=== PATIENT | female | born 1975 | race Caucasian/White ===

== ENCOUNTER 2021-01-19 08:00 | Outpatient (CLI) | payer BC ==
[2021-01-19 21:18] LABS: BACTERIAL VAGINOSIS DNA NEGATIVE (NEGATIVE); CANDIDA GLABRATA DNA NEGATIVE (NEGATIVE); CANDIDA GROUP DNA NEGATIVE (NEGATIVE); CANDIDA KRUSEI DNA NEGATIVE (NEGATIVE); TRICHOMONAS VAGINALIS DNA NEGATIVE (NEGATIVE)
[2021-01-19 22:22] LABS: CHLAMYDIA TRACHOMATIS DNA NEGATIVE (NEGATIVE); NEISSERIA GONORRHOEAE DNA NEGATIVE (NEGATIVE); TRICHOMONAS VAGINALIS DNA NEGATIVE (NEGATIVE)
== END 2021-01-19 23:59 | disposition home or self-care (01) ==
LOC: LAB.R 08:00
PROVIDERS: ATTEND Family Medicine
DX: N30.00 Acute cystitis without hematuria (principal)
CPT/HCPCS: 87491; 87591; 87661; 87801

== ENCOUNTER 2021-02-16 12:13 | Emergency (ER) | payer BC ==
--- NOTE | 2021-02-16 12:59 | XRAY Report ---
PROCEDURE: Chest 1 View X-Ray INDICATIONS: Chest pain TECHNIQUE: One view of the chest was acquired. COMPARISON: None FINDINGS: Surgical changes and devices: None. Lungs and pleura: No pleural effusions or pneumothorax. Lungs are clear. Mediastinum: Mediastinal contours appear normal. Heart size is normal. Bones and chest wall: No suspicious bony lesions. Overlying soft tissues appear unremarkable. IMPRESSION: No acute cardiopulmonary disease process. Reviewed by: Caprice Calixto MD, PhD on 02/16/2021 12:58 PM PDT Approved by: Caprice Calixto MD, PhD on 02/16/2021 12:58 PM PDT Station ID: [id number]
[2021-02-16 13:25] LABS: BASOPHILS % (AUTO) 0.6 %; EOSINOPHILS # (AUTO) 0.7 10^3/uL (0.0-0.7); EOSINOPHILS % (AUTO) 11.6 %; HCT - HEMATOCRIT 27.9 % (37.0-47.0); HGB - HEMOGLOBIN 8.2 g/dL (12.0-16.0); LYMPHOCYTES % (AUTO) 31.1 %; MEAN CORPUSCULAR HEMOGLOBIN 20.2 pg (27.0-31.0); MEAN CORPUSCULAR HGB CONC 29.4 g/dL (32.0-36.0); MEAN CORPUSCULAR VOLUME 68.7 fL (81.0-99.0); MEAN PLATELET VOLUME 9.9 fL (7.9-10.8); MONOCYTES # (AUTO) 0.3 10^3/uL (0.0-1.0); MONOCYTES % (AUTO) 5.3 %; NEUTROPHILS # (AUTO) 3.3 10^3/uL (1.5-6.6); NEUTROPHILS % (AUTO) 51.1 %; PLT - PLATELET COUNT 476 10^3/uL (130-450); RED BLOOD COUNT 4.06 10^6/uL (4.20-5.40); RED CELL DISTRIBUTION WIDTH 19.6 % (12.0-15.0); WHITE BLOOD COUNT 6.4 x10^3/uL (4.8-10.8)
[2021-02-16 13:26] LABS: RBC MORPHOLOGY (MULTIPLE) 2+ MICROCYTOSIS (NORMAL); SLIDE REVIEW? Indicated
[2021-02-16 13:28] LABS: ALBUMIN 4.5 g/dL (3.2-5.5); ALBUMIN/GLOBULIN RATIO 1.6 (1.0-2.2); BILIRUBIN,TOTAL 0.6 mg/dL (0.2-1.0); CALCIUM 9.5 mg/dL (8.5-10.3); CREATININE 0.8 mg/dL (0.4-1.0); TOTAL PROTEIN 7.3 g/dL (6.7-8.2)
--- NOTE | 2021-02-16 15:47 | ED Physician Documentation ---
History of Present Illness - Stated complaint Stated Complaint: TIGHT CHEST - Chief complaint Chief Complaint: Cardiac - History obtained from History obtained from: Patient - History of Present Illness Pain level max: 0 Pain level now: 0 - Additonal information Additional information: Patient is a 45-year-old female who presents to the emergency department stating that her chest feels tight like there is a pulled muscle across the front of it. Worse with movement and better with rest. No cough. Congestion. No cardiac history. She states that she has swelling in her bilateral feet when she comes home from work, this improves when she elevates her legs. Does have a history of a DVT in the left lower extremity after surgery in 2018. Review of Systems Constitutional: denies: Fever, Chills Throat: denies: Sore throat Respiratory: denies: Cough GI: denies: Nausea, Vomiting, Diarrhea Skin: denies: Rash Musculoskeletal: denies: Neck pain, Back pain Neurologic: denies: Headache PD PAST MEDICAL HISTORY - Past Medical History Past Medical History: Yes Other Past Medical History: anemia - Present Medications Home Medications: Ambulatory Orders Medication Instructions Recorded Confirmed Ferrous Gluconate 324 mg PO DAILY #30 tablet 02/16/21 - Allergies Allergies/Adverse Reactions: Allergies Allergy/AdvReac Type Severity Reaction Status Date / Time acetaminophen [From Percocet] Allergy Itching Verified 02/16/21 12:30 oxycodone [From Percocet] Allergy Itching Verified 02/16/21 12:30 - Living Situation Living Situation: reports: With family Living Arrangement: reports: At home - Social History Does the pt smoke?: No Does the pt have substance abuse?: No - Family History Family history: reports: Non contributory PD ED PE NORMAL - Vitals Vital signs reviewed: Yes - General General: Alert and oriented X 3, No acute distress - HEENT HEENT: Moist mucous membranes - Neck Neck: Supple, no meningeal sign - Respiratory Respiratory: No respiratory distress, Clear bilaterally - Abdomen Abdomen: Soft, Non tender, Non distended - Back Back: No spinal TTP - Derm Derm: Warm and dry - Extremities Extremities: No calf tenderness / cord, Other (mild peripheral edema, non- pitting.) - Neuro Neuro: Alert and oriented X 3 - Psych Psych: Normal mood, Normal affect Results - Vitals Vitals: Vital Signs - 24 hr 02/16/21 02/16/21 02/16/21 12:30 14:34 16:00 Temperature 36.5 C Heart Rate 70 65 60 Respiratory 16 18 19 Rate Blood Pressure 130/70 129/84 H 122/80 O2 Saturation 100 100 99 Oxygen O2 Source Room air - Labs Labs: Laboratory Tests 02/16/21 02/16/21 02/16/21 13:10 13:10 13:10 WBC 6.4 RBC 4.06 L Hgb 8.2 L Hct 27.9 L MCV 68.7 L MCH 20.2 L MCHC 29.4 L RDW 19.6 H Plt Count 476 H MPV 9.9 Neut # (Auto) 3.3 Lymph # (Auto) 2.0 [place] # (Auto) 0.3 Eos # (Auto) 0.7 Baso # (Auto) 0.0 Absolute Nucleated RBC 0.00 Nucleated RBC % 0.0 Manual Slide Review Indicated RBC Morph Micro Appear 2+ MICROCYTOSIS D-Dimer Sodium 138 Potassium 4.0 Chloride 105 Carbon Dioxide 25 Anion Gap 8.0 BUN 7 Creatinine 0.8 Estimated GFR (MDRD) 77 L Glucose 91 Calcium 9.5 Total Bilirubin 0.6 AST 32 ALT 23 Alkaline Phosphatase 52 Troponin I High Sens < 2.3 L B-Natriuretic Peptide Total Protein 7.3 Albumin 4.5 Globulin 2.8 Albumin/Globulin Ratio 1.6 Lipase 34 02/16/21 02/16/21 15:02 15:02 WBC RBC Hgb Hct MCV MCH MCHC RDW Plt Count MPV Neut # (Auto) Lymph # (Auto) [place] # (Auto) Eos # (Auto) Baso # (Auto) Absolute Nucleated RBC Nucleated RBC % Manual Slide Review RBC Morph Micro Appear D-Dimer < 200.0 L Sodium Potassium Chloride Carbon Dioxide Anion Gap BUN Creatinine Estimated GFR (MDRD) Glucose Calcium Total Bilirubin AST ALT Alkaline Phosphatase Troponin I High Sens B-Natriuretic Peptide 89 Total Protein Albumin Globulin Albumin/Globulin Ratio Lipase - Rads (name of study) cxr Radiology: Final report received, EMP read contemporaneously, See rad report (No acute cardiopulmonary disease process. ) PD MEDICAL DECISION MAKING - ED course Complexity details: reviewed results, re-evaluated patient, considered differential (No ST elevation NM, no aortic dissection, no PE, no tension pneumothorax, no aortic aneurysm), d/w patient ED course: Patient is a 45-year-old female who presents to the emergency department with chest pain. This is on the anterior chest wall. Reproducible with movement and palpation. She also has leg swelling. Appears to be dependent edema. Does not wear socks at work. Recommend compression socks. She states that she does have these at home. Possible costochondritis? We will have her continue supportive care and have her follow-up with her doctor. Patient counseled regarding signs and symptoms for which I believe and urgent re-evaluation would be necessary. Patient with good understanding of and agreement to plan and is comfortable going home at this time This document was made in part using voice recognition software. While efforts are made to proofread this document, sound alike and grammatical errors may occur. No evidence of DVT. Patient also appears to have iron deficiency anemia. We will place her back on iron. Departure - Departure Disposition: Home, Self Care Clinical Impression: Costochondritis Chest pain Qualifiers: Chest pain type: unspecified Qualified Code(s): R07.9 - Chest pain, unspecified Anemia Qualifiers: Anemia type: iron deficiency Iron deficiency anemia type: unspecified iron deficiency Qualified Code(s): D50.9 - Iron deficiency anemia, unspecified Condition: Good Instructions: ED Anemia Iron Deficiency, ED Chest Pain Costochondritis, ED Edema Legs Bilateral Follow-Up: your,doctor in 1 week [Other] Prescriptions: Ferrous Gluconate 324 mg PO DAILY #30 tablet Comments: Your testing does not show any acute abnormalities today. You do appear to have iron deficiency anemia. We will start you on iron supplementation. Your doctor can order iron infusions for you that may be easier for you to tolerate. Your chest pain appears consistent with costochondritis. You can use Motrin, Tylenol or Aleve for this pain. You should elevate your legs whenever possible, compression stockings will help to prevent the swelling in your feet as well. Follow-up with your doctor for further care. Return if you worsen Discharge Date/Time: 02/16/21 16:02
[2021-02-16 16:02] VITALS: BP 122/80
== END 2021-02-16 16:02 | disposition home or self-care (01) ==
LOC: ED 12:13
DX: M94.0 Chondrocostal junction syndrome [Tietze] (principal); R60.0 Localized edema; D50.9 Iron deficiency anemia, unspecified
CPT/HCPCS: 36415; 80053; 83690; 83880; 84484; 85025; 85379; 93005; 99284

== ENCOUNTER 2021-08-19 11:34 | Emergency (ER) | payer BC ==
[2021-08-19 12:15] LABS: BASOPHILS # (AUTO) 0.1 10^3/uL (0.0-0.1); BASOPHILS % (AUTO) 0.8 %; EOSINOPHILS # (AUTO) 0.1 10^3/uL (0.0-0.7); EOSINOPHILS % (AUTO) 1.5 %; HCT - HEMATOCRIT 39.3 % (37.0-47.0); HGB - HEMOGLOBIN 13.1 g/dL (12.0-16.0); LYMPHOCYTES # (AUTO) 1.9 10^3/uL (1.5-3.5); LYMPHOCYTES % (AUTO) 29.3 %; MEAN CORPUSCULAR HEMOGLOBIN 28.7 pg (27.0-31.0); MEAN CORPUSCULAR HGB CONC 33.3 g/dL (32.0-36.0); MEAN PLATELET VOLUME 9.8 fL (7.9-10.8); MONOCYTES # (AUTO) 0.3 10^3/uL (0.0-1.0); MONOCYTES % (AUTO) 5.1 %; NEUTROPHILS # (AUTO) 4.1 10^3/uL (1.5-6.6); NEUTROPHILS % (AUTO) 63.1 %; PLT - PLATELET COUNT 328 10^3/uL (130-450); RED BLOOD COUNT 4.57 10^6/uL (4.20-5.40); RED CELL DISTRIBUTION WIDTH 15.5 % (12.0-15.0); WHITE BLOOD COUNT 6.5 x10^3/uL (4.8-10.8)
--- NOTE | 2021-08-19 12:19 | ED Physician Documentation ---
History of Present Illness - Stated complaint Stated Complaint: FEMALE - Chief complaint Chief Complaint: Abd Pain - Additonal information Additional information: 46-year-old female presents to the emergency department for evaluation of me norrhagia. She reports that this episode of vaginal bleeding began mid July. She has been using 4-8 pads a day. Before this she had not had a cycle for 4 to 5 months and assumed she was entering menopause. She has no history of heavy or irregular cycles before this. She is on no oral hormonal contraceptives. Denies any chest pain or shortness of air. No syncopal episodes though she does endorse fatigue and weakness. She does state that at baseline she has a history of anemia and did receive an iron transfusion at the [facility] in May. Review of Systems Constitutional: reports: Fatigue Ears: reports: Reviewed and negative Throat: reports: Reviewed and negative Cardiac: reports: Reviewed and negative Respiratory: reports: Reviewed and negative GI: reports: Reviewed and negative : reports: Vaginal bleeding, Missed period Skin: denies: Rash, Lesions Musculoskeletal: reports: Reviewed and negative Neurologic: reports: Generalized weakness Psychiatric: reports: Reviewed and negative Endocrine: reports: Reviewed and negative PD PAST MEDICAL HISTORY - Present Medications Home Medications: Ambulatory Orders Medication Instructions Recorded Confirmed Ferrous Gluconate 324 mg PO DAILY #30 tablet 02/16/21 - Allergies Allergies/Adverse Reactions: Allergies Allergy/AdvReac Type Severity Reaction Status Date / Time acetaminophen [From Percocet] Allergy Itching Verified 08/19/21 11:57 oxycodone [From Percocet] Allergy Itching Verified 08/19/21 11:57 - Social History Does the pt smoke?: No Smoking Status: Never smoker Does the pt have substance abuse?: No PD ED PE NORMAL - General General: Alert and oriented X 3, No acute distress - HEENT HEENT: PERRL - Neck Neck: Supple, no meningeal sign, No adenopathy - Cardiac Cardiac: RRR, No murmur, No gallop - Respiratory Respiratory: No respiratory distress, Clear bilaterally - Abdomen Abdomen: Normal bowel sounds, Soft, Non tender - Back Back: No CVA TTP, No spinal TTP - Derm Derm: Normal color, Warm and dry - Extremities Extremities: No deformity, No tenderness to palpate, Normal ROM s pain - Neuro Neuro: Alert and oriented X 3, risk assessor 2-12 intact Eye Opening: Spontaneous Motor: Obeys Commands Verbal: Oriented GCS Score: 15 - Psych Psych: Normal mood Results - Vitals Vitals: Vital Signs - 24 hr 08/19/21 11:51 Temperature 36.6 C Heart Rate 85 Respiratory 16 Rate Blood Pressure 136/87 H O2 Saturation 98 Oxygen O2 Source Room air - Labs Labs: Laboratory Tests 08/19/21 08/19/21 08/19/21 12:07 12:07 12:07 WBC 6.5 RBC 4.57 Hgb 13.1 Hct 39.3 MCV 86.0 MCH 28.7 MCHC 33.3 RDW 15.5 H Plt Count 328 MPV 9.8 Neut # (Auto) 4.1 Lymph # (Auto) 1.9 [place] # (Auto) 0.3 Eos # (Auto) 0.1 Baso # (Auto) 0.1 Absolute Nucleated RBC 0.00 Nucleated RBC % 0.0 PT INR Sodium 135 Potassium 3.9 Chloride 99 L Carbon Dioxide 26 Anion Gap 10.0 BUN 13 Creatinine 0.7 Estimated GFR (MDRD) 89 Glucose 93 Calcium 9.6 Total Bilirubin 0.7 AST 23 ALT 21 Alkaline Phosphatase 51 Total Protein 7.5 Albumin 4.3 Globulin 3.2 Albumin/Globulin Ratio 1.3 Lipase 37 TSH Serum HCG, Qual NEGATIVE 08/19/21 08/19/21 12:07 12:16 WBC RBC Hgb Hct MCV MCH MCHC RDW Plt Count MPV Neut # (Auto) Lymph # (Auto) [place] # (Auto) Eos # (Auto) Baso # (Auto) Absolute Nucleated RBC Nucleated RBC % PT 12.5 INR 1.1 Sodium Potassium Chloride Carbon Dioxide Anion Gap BUN Creatinine Estimated GFR (MDRD) Glucose Calcium Total Bilirubin AST ALT Alkaline Phosphatase Total Protein Albumin Globulin Albumin/Globulin Ratio Lipase TSH 2.84 Serum HCG, Qual - Rads (name of study) pelvic US Radiology: Other (per US tech: bicornate uterus; thickened endometrium, right ovarian cyst. + fibroids) PD MEDICAL DECISION MAKING - ED course Complexity details: reviewed results, re-evaluated patient, considered differential, d/w patient ED course: 46-year-old female presents emergency department for evaluation of vaginal bleeding that began about 1 month ago. She had not had a menstrual cycle for approximately 4 months and thought that she was likely entering menopause. She states that over the last week the bleeding has gotten heavier and she is used 8 tampons over the last 24 hours. No syncope or tachycardia. Screening labs reveal a normal and healthy hemoglobin at 13. Electrolytes without worrisome findings. Thyroid is normal. Screening pelvic ultrasound revealed a bicornate uterus with a thickened endometrium and some small fibroids. Given that she is not anemic and has no vital sign abnormality will defer further treatment at this time. Advise close follow-up with her motion picture printer for further recommendations. Emergent worrisome return precautions were discussed for worsening symptoms. Departure - Departure Disposition: 01 Home, Self Care Clinical Impression: Vaginal bleeding, Bicornate uterus Uterine fibroid Qualifiers: Uterine leiomyoma location: unspecified location Qualified Code(s): D25.9 - Leiomyoma of uterus, unspecified Condition: Critical Comments: Alta oconnell were seen today in the emergency department for concerns of vaginal bleeding that began almost a month ago. Your hemoglobin today is 13 which is healthy and normal for a woman. You are not anemic. Your screening electrolytes were normal. We did do a pelvic ultrasound that showed that you have a bicornate uterus. This is not a cause of the vaginal bleeding. You do however have some small fibroids which may be contributing. It is important that you discuss with your motion picture printer longer-term management of this episode of bleeding. They may want to consider hormones to stop the cycle. I advised that you call today to arrange follow-up. If you find that your symptoms are worsening, you have a racing heart, and any fainting episodes, sudden Dima severe or different symptoms then please return to the ER for a second evaluation.
[2021-08-19 12:30] LABS: INR 1.1 (0.8-1.2); PT - PROTHROMBIN TIME 12.5 secs (9.9-12.6)
[2021-08-19 12:48] LABS: ALBUMIN 4.3 g/dL (3.2-5.5); ALBUMIN/GLOBULIN RATIO 1.3 (1.0-2.2); BILIRUBIN,TOTAL 0.7 mg/dL (0.2-1.0); CALCIUM 9.6 mg/dL (8.5-10.3); CREATININE 0.7 mg/dL (0.4-1.0); POTASSIUM 3.9 mmol/L (3.5-5.0); TOTAL PROTEIN 7.5 g/dL (6.7-8.2)
[2021-08-19 12:51] LABS: HCG,QUALITATIVE BLOOD NEGATIVE
[2021-08-19 13:38] VITALS: BP 131/71
--- NOTE | 2021-08-19 14:45 | Ultrasound Report ---
PROCEDURE: Pelvic w/Transvag+Doppler Comp INDICATIONS: Bleeding history of ectopic TECHNIQUE: Real-time scanning was performed of the pelvic organs, with image documentation. Additional endovagi nal scanning was necessary due to incomplete visualization of the adnexal and endometrial structures by transabdominal scanning. COMPARISON: None. FINDINGS: No pathologic free abdominal or pelvic fluid. Uterus: Uterus is normal in size at 9.2 x 5.4 x 6.1 cm. Uterus is retroverted and somewhat heteroge neous in echotexture. The endometrium measures 11.4, 213.1 mm in combined thickness. There is a focu s of heterogeneous echogenicity within the right posterior intramural region measuring 18 x 16 x 19 m m. Ovaries: Right ovary measures 4.2 x 2.9 x 3.2 cm, volume 20.5 cc. Left ovary measures 2.5 x 1.0 x 1. 3 cm, by 1.8 cc. There is a focus of decreased echogenicity within the right ovary measuring 2.5 x 1. 8 x 2.6 cm. IMPRESSION: Focus of increased echogenicity suggestive of fibroid. Endometrial complex measures 11.4 x 13.1 mm. No focal mass is identified. Right ovarian cyst. Reviewed by: Camilla Cerda MD on 08/19/2021 2:43 PM PST Approved by: Camilla Cerda MD on 08/19/2021 2:43 PM PST Station ID: [id number]
== END 2021-08-19 13:42 | disposition home or self-care (01) ==
LOC: ED 11:34
DX: N92.0 Excessive and frequent menstruation with regular cycle (principal); Q51.3 Bicornate uterus
CPT/HCPCS: 36415; 80053; 83690; 84443; 84703; 85025; 85610; 93975; 99283; 99284

== ENCOUNTER 2021-09-18 13:15 | Emergency (ER) | payer BC ==
--- OUTSIDE RECORDS SUMMARY | 2021-09-18 13:24 | EXTERNAL MEDICAL SUMMARY RPT | Continuity of Care Document ---
:1975 Author Organization [facility] [address] [place] [address] Phone Care Team Providers Name Role Phone Seble Mena Unavailable Unavailable Oscar Yañez Unavailable Unavailable Allergies No information. Encounters No information. Medications date description facility [id number] medroxyprogesterone acetate 10 MG Oral Tablet [facility] Problems date description facility [id number] Other specified abnormal uterine and va ginal bleeding [facility] [id number] Pain in right leg [facility] Procedures date description facility [id number] General Physician [facility] [id number] [facility] [id number] Diagnosis [facility] Results No information. Vital Signs date measurement value source [id number] weight_standard 210.98 lb [id number] weight_metric 95.7 kg [id number] height_standard 69 in [id number] height_metric 175.26 cm [id number] heart_rate 81 /min [id number] BP_systolic 100 mm[Hg] [id number] BP_diastolic 60 mm[Hg] [id number] BMI 31.1 kg/m2
[2021-09-18] MEDS ORDERED: HYDROmorphone 1 MG/ML CARPUJECT IVP STA (13:44)
--- NOTE | 2021-09-18 13:47 | ED Physician Documentation ---
History of Present Illness - Stated complaint Stated Complaint: FEMALE - Chief complaint Chief Complaint: Abd Pain - Additonal information Additional information: 46-year-old female presents emergency department for evaluation of menorrhagia. She was seen by myself in early August for menorrhagia and a pelvic ultrasound showed uterine Aspers. She declined to start hormones at that time as she had a healthy hemoglobin. She ultimately followed up with Dr. Mena, and [facility] [employer] [facility] in [place] on Monday and was started on progesterone. Since starting the progesterone 910 mg qd) she reports that she is having heavier bleeding. Worsening cramping. She states that this morning she has saturated 8 menstrual pads. Denies any syncope or chest pain but does endorse feeling short of air with ambulation. Review of Systems Constitutional: reports: Reviewed and negative Nose: reports: Reviewed and negative Throat: reports: Reviewed and negative Cardiac: reports: Reviewed and negative Respiratory: reports: Dyspnea, Hemoptysis, Wheezing. denies: Cough GI: reports: Abdominal Pain. denies: Nausea, Vomiting : reports: Vaginal bleeding Skin: reports: Reviewed and negative Musculoskeletal: reports: Reviewed and negative Neurologic: reports: Reviewed and negative PD PAST MEDICAL HISTORY - Present Medications Home Medications: Ambulatory Orders Medication Instructions Recorded Confirmed Ferrous Gluconate 324 mg PO DAILY #30 tablet 02/16/21 HYDROcod/ACETAM 5/325 [[place] 5/325] 1 - 2 tablet PO BID #5 tablet 09/18/21 - Allergies Allergies/Adverse Reactions: Allergies Allergy/AdvReac Type Severity Reaction Status Date / Time acetaminophen [From Percocet] Allergy Itching Verified 09/18/21 13:25 oxycodone [From Percocet] Allergy Itching Verified 09/18/21 13:25 - Social History Does the pt smoke?: No Smoking Status: Never smoker Does the pt have substance abuse?: No PD ED PE NORMAL - General General: Alert and oriented X 3, No acute distress, Well developed/nourished - HEENT HEENT: Atraumatic, Moist mucous membranes - Neck Neck: Supple, no meningeal sign, No adenopathy, No JVD - Cardiac Cardiac: RRR, No murmur, No gallop - Respiratory Respiratory: No respiratory distress, Clear bilaterally - Abdomen Abdomen: Normal bowel sounds, Soft. No: Non tender (Lower pelvic tenderness. Nonfocal. No guarding or rebound.) - Back Back: No CVA TTP, No spinal TTP - Derm Derm: Normal color, Warm and dry - Extremities Extremities: No deformity, No edema - Neuro Neuro: Alert and oriented X 3, rn teacher 2-12 intact Eye Opening: Spontaneous Motor: Obeys Commands Verbal: Oriented GCS Score: 15 - Psych Psych: Normal mood Results - Vitals Vitals: Vital Signs - 24 hr 09/18/21 13:21 Temperature 36.7 C Heart Rate 85 Respiratory 18 Rate Blood Pressure 127/93 H O2 Saturation 100 Oxygen O2 Source Room air - Labs Labs: Laboratory Tests 09/18/21 09/18/21 09/18/21 13:39 13:39 13:39 WBC 6.2 RBC 4.25 Hgb 12.6 Hct 37.9 MCV 89.2 MCH 29.6 MCHC 33.2 RDW 14.4 Plt Count 375 MPV 9.5 Neut # (Auto) 3.6 Lymph # (Auto) 2.0 [place] # (Auto) 0.4 Eos # (Auto) 0.1 Baso # (Auto) 0.0 Absolute Nucleated RBC 0.00 Nucleated RBC % 0.0 Sodium 136 Potassium 3.7 Chloride 102 Carbon Dioxide 26 Anion Gap 8.0 BUN 11 Creatinine 0.8 Estimated GFR (MDRD) 77 L Glucose 92 Calcium 9.1 Total Bilirubin 0.6 AST 26 ALT 21 Alkaline Phosphatase 46 Total Protein 7.4 Albumin 4.4 Globulin 3.0 Albumin/Globulin Ratio 1.5 Lipase 39 Serum HCG, Qual NEGATIVE PD MEDICAL DECISION MAKING - ED course Complexity details: reviewed results, re-evaluated patient, considered differential, d/w patient ED course: 38-year-old female presents emergency department for persistent menorrhagia. Seen by Dr. Mena recently and started on progesterone. Patient continues to have unremarkable vital signs and a stable hemoglobin over the last month. I did discuss this case with the OB on-call for Dr. Trina Heart. At this time she would not suggest a change in the progesterone as Dr. Mena indicated the neck step for the patient is a hysteroscopy in office. Given clinical stability patient will be discharged with emergent follow-up and return precautions Departure - Departure Disposition: 01 Home, Self Care Clinical Impression: Menorrhagia with irregular cycle Condition: Stable Record reviewed to determine appropriate education?: Yes Follow-Up: Seble Mena MD [Physician No Access] - Prescriptions: HYDROcod/ACETAM 5/325 [[place] 5/325] 1 - 2 tablet PO BID #5 tablet Comments: Alta Mayo am sorry you are having to deal with this heavy bleeding. Your screening labs today show a healthy and normal hemoglobin of 12.6. This is essentially unchanged from 1 month ago. Your vital signs here are normal. I did discuss your case with the on-call OB for Dr. Mena. In review of her chart notes that Dr. Mena indicated that if your bleeding did not improve or worsened with the progesterone the next step would be to call the office to set be scheduled for hysteroscopy. Please call Dr. Mena's office on Monday to arrange this. I am prescribing a limited amount of hydrocodone for severe pain only. If at any point you have fainting episodes, sudden severe chest pain, or severe shortness of air you are to return to the emergency department I am prescribing a short course of narcotic pain medication for you. These are potentially dangerous and addictive medications that should be used carefully. These medications may constipate you. Take an wxdw-jux-gwilqve stool softener (docusate) twice daily with plenty of water while taking these medications. If you go 24 hours without a bowel movement, take nlox-jrl-sqijall miralax, per package instructions. Do not drink or drive while taking these medications. If you received narcotic or sedating medications while in the emergency department, do not drive for 24 hours. Store this medication in a safe, secure place and out of reach of children. It is a violation of federal law to give or sell this medication to another person or to use in a manner other than prescribed. The ED will not refill narcotic prescriptions, including prescriptions lost or stolen. To dispose of unwanted medications: 1. [facility] at [address] in [place] has a medication drop box. They accept prescription medications (in pill form) Monday through Monday 9:00 a.m. to 5:00 p.m. 2. The [facility] [employer] accepts prescription medications (in pill form only) for disposal year round. Call for more information. 3. Contact the [facility] for the next [facility] sponsored prescription drug collection event. , [phone], or [phone]; Note that many narcotic pain relievers also contain Tylenol/acetaminophen. Please ensure that your total dose of acetaminophen from all sources does not exceed 3 g (3000 mg) per day.
[2021-09-18 13:48] LABS: BASOPHILS % (AUTO) 0.7 %; EOSINOPHILS # (AUTO) 0.1 10^3/uL (0.0-0.7); EOSINOPHILS % (AUTO) 1.8 %; HCT - HEMATOCRIT 37.9 % (37.0-47.0); HGB - HEMOGLOBIN 12.6 g/dL (12.0-16.0); LYMPHOCYTES % (AUTO) 31.9 %; MEAN CORPUSCULAR HEMOGLOBIN 29.6 pg (27.0-31.0); MEAN CORPUSCULAR HGB CONC 33.2 g/dL (32.0-36.0); MEAN CORPUSCULAR VOLUME 89.2 fL (81.0-99.0); MEAN PLATELET VOLUME 9.5 fL (7.9-10.8); MONOCYTES # (AUTO) 0.4 10^3/uL (0.0-1.0); MONOCYTES % (AUTO) 6.5 %; NEUTROPHILS # (AUTO) 3.6 10^3/uL (1.5-6.6); NEUTROPHILS % (AUTO) 58.9 %; PLT - PLATELET COUNT 375 10^3/uL (130-450); RED BLOOD COUNT 4.25 10^6/uL (4.20-5.40); RED CELL DISTRIBUTION WIDTH 14.4 % (12.0-15.0); WHITE BLOOD COUNT 6.2 x10^3/uL (4.8-10.8)
[2021-09-18 13:59] LABS: ALBUMIN 4.4 g/dL (3.2-5.5); ALBUMIN/GLOBULIN RATIO 1.5 (1.0-2.2); BILIRUBIN,TOTAL 0.6 mg/dL (0.2-1.0); CALCIUM 9.1 mg/dL (8.5-10.3); CREATININE 0.8 mg/dL (0.4-1.0); POTASSIUM 3.7 mmol/L (3.5-5.0); TOTAL PROTEIN 7.4 g/dL (6.7-8.2)
[2021-09-18 14:13] LABS: HCG,QUALITATIVE BLOOD NEGATIVE
[2021-09-18 15:06] VITALS: BP 115/80
== END 2021-09-18 15:15 | disposition home or self-care (01) ==
LOC: ED 13:15
DX: N92.0 Excessive and frequent menstruation with regular cycle (principal)
CPT/HCPCS: 36415; 80053; 83690; 84703; 85025; 96374; 99283; 99284; J1170

== ENCOUNTER 2022-05-10 20:19 | Emergency (ER) | payer BC ==
--- OUTSIDE RECORDS SUMMARY | 2022-05-10 20:37 | EXTERNAL MEDICAL SUMMARY RPT | Continuity of Care Document ---
:1975 Author Organization [facility] Address [address] [place] [address] Phone Allergies and Intolerances date description facility type (no date) No Known Drug Allergies [facility] (unkn own) Encounters No information. Functional Status No information. Immunizations No information. Medications No information. Problems No information. Procedures No information. Results/Labs test date author facility value unit interpret ation Result panel 1 (unknown) (no (unknown) (unknown) (no value) (units (unk nown) date) unknown) (unknown) (no (unknown) (unknown) ([facility] Thyroid) (units (unknown) date) unknown) (unknown) (no (unknown) (unknown) 120 mg PO DAILY (units (unknown) date) unknown) (unknown) (no (unknown) (unknown) 50 mg PO Q6H PRN (units (unknown) date) (Reason: pain) unknown) Qty: 20 0RF (unknown) (no (unknown) (unknown) 607 (units (unkno wn) date) unknown) (unknown) (no (unknown) (unknown) Abnormal Pap (units (u nknown) date) smear of cervix unknown) () (unknown) (no (unknown) (unknown) Acne () (units (u nknown) date) unknown) (unknown) (no (unknown) (unknown) Age/Sex: 46 / F (units (unknown) date) unknown) (unknown) (no (unknown) (unknown) Allergies (units (unkn own) date) unknown) (unknown) (no (unknown) (unknown) Allergy/AdvReac (units (unknown) date) Type Severity unknown) Reaction Status Date / Time (unknown) (no (unknown) (unknown) Anemia (units (unkno wn) date) unknown) (unknown) (no (unknown) (unknown) Anesthesia (units (unk nown) date) unknown) (unknown) (no (unknown) (unknown) Blood Pressure (units (unknown) date) 117/70 05/08/22 unknown) 10:37 (unknown) (no (unknown) (unknown) Chicken pox (units (un known) date) () unknown) (unknown) (no (unknown) (unknown) Chief complaint: (units (unknown) date) Medical Clearance unknown) (unknown) (no (unknown) (unknown) Oscar Yañez, (units (unknown) date) [Primary Care unknown) Provider] (unknown) (no (unknown) (unknown) : 1975 (units (unknown) date) Acct:[id number] unknown) (unknown) (no (unknown) (unknown) DVT (deep venous (units (unknown) date) thrombosis) unknown) () (unknown) (no (unknown) (unknown) Date of Service: (units (unknown) date) 05/08/22 unknown) (unknown) (no (unknown) (unknown) Departure (units (unkn own) date) unknown) (unknown) (no (unknown) (unknown) Discharge Plan (units (unknown) date) unknown) (unknown) (no (unknown) (unknown) ER Physician: (units ( unknown) date) Thien Magallanes unknown) D.O. (unknown) (no (unknown) (unknown) Emergency Report (units (unknown) date) unknown) (unknown) (no (unknown) (unknown) Exam (units (unkno wn) date) unknown) (unknown) (no (unknown) (unknown) Family History (units (unknown) date) (Updated 09/04/21 unknown) @ 21:35 by Arianne Ramirez) (unknown) (no (unknown) (unknown) Father (units (unknown) date) Congestive heart unknown) failure (unknown) (no (unknown) (unknown) General (units (unkno wn) date) unknown) (unknown) (no (unknown) (unknown) Graves disease (units (unknown) date) () unknown) (unknown) (no (unknown) (unknown) HPI - Medical (units ( unknown) date) Clearance unknown) (unknown) (no (unknown) (unknown) Herpes (-1990) (units (unknown) date) unknown) (unknown) (no (unknown) (unknown) History of (units (unk nown) date) section unknown) () (unknown) (no (unknown) (unknown) History of (units (unk nown) date) section unknown) () (unknown) (no (unknown) (unknown) History of (units (unk nown) date) surgery () unknown) (unknown) (no (unknown) (unknown) History of (units (unk nown) date) thyroid surgery unknown) () (unknown) (no (unknown) (unknown) History of tubal (units (unknown) date) ligation unknown) () (unknown) (no (unknown) (unknown) Home Medications (units (unknown) date) unknown) (unknown) (no (unknown) (unknown) Initial Vital (units ( unknown) date) Signs unknown) (unknown) (no (unknown) (unknown) Initial Vital (units ( unknown) date) Signs: unknown) (unknown) (no (unknown) (unknown) Irregular (units (unkn own) date) menstrual cycle unknown) (unknown) (no (unknown) (unknown) [facility] (units (unknown) date) [address] [place] [address] unknown) [place] [address] (unknown) (no (unknown) (unknown) Label Comments: (units (unknown) date) unknown) (unknown) (no (unknown) (unknown) Medical History (units (unknown) date) (Updated 09/22/21 unknown) @ 16:45 by Seble Mena MD) (unknown) (no (unknown) (unknown) Medication (units (unk nown) date) Instructions unknown) Recorded Confirmed (unknown) (no (unknown) (unknown) Medication (units (unk nown) date) Instructions unknown) Recorded (unknown) (no (unknown) (unknown) Mode of arrival: (units (unknown) date) Ambulatory unknown) (unknown) (no (unknown) (unknown) Mother (units (unkno wn) date) Hyperlipidemia unknown) (unknown) (no (unknown) (unknown) No Action (units (unkn own) date) unknown) (unknown) (no (unknown) (unknown) No Known Drug (units ( unknown) date) Allergies Allergy unknown) Verified 09/27/21 15:03 (unknown) (no (unknown) (unknown) Oxygen Delivery (units (unknown) date) Method 05/08/22 unknown) 10:37 (unknown) (no (unknown) (unknown) Painful (units (unkno wn) date) menstrual periods unknown) (-2017) (unknown) (no (unknown) (unknown) Patient History (units (unknown) date) unknown) (unknown) (no (unknown) (unknown) Patient: (units (unkno wn) date) Alta Betancourt MR#: unknown) [id number] (unknown) (no (unknown) (unknown) Prescriptions: (units (unknown) date) unknown) (unknown) (no (unknown) (unknown) Previous Rx's (units ( unknown) date) unknown) (unknown) (no (unknown) (unknown) Pulse Oximetry (units (unknown) date) 99 05/08/22 10:37 unknown) (unknown) (no (unknown) (unknown) Pulse Rate 76 (units ( unknown) date) 05/08/22 10:37 unknown) (unknown) (no (unknown) (unknown) Referrals: (units (unk nown) date) unknown) (unknown) (no (unknown) (unknown) Related (units (unkno wn) date) Information unknown) (unknown) (no (unknown) (unknown) Respiratory Rate (units (unknown) date) 18 05/08/22 10:37 unknown) (unknown) (no (unknown) (unknown) Signed By: (units (unk nown) date) unknown) (unknown) (no (unknown) (unknown) Smoking Status: (units (unknown) date) Former smoker unknown) (unknown) (no (unknown) (unknown) Social History (units (unknown) date) (Reviewed unknown) 08/05/19 @ 23:13 by Luis Leary DO) (unknown) (no (unknown) (unknown) Source: patient (units (unknown) date) unknown) (unknown) (no (unknown) (unknown) Stated (units (unkno wn) date) complaint: unknown) haven't slept in a week sleeping issues since December (unknown) (no (unknown) (unknown) Substance Use (units ( unknown) date) Type: does not unknown) use (unknown) (no (unknown) (unknown) Surgical History (units (unknown) date) (Updated 09/04/21 unknown) @ 21:34 by Arianne Ramirez) (unknown) (no (unknown) (unknown) Temperature 96.9 (units (unknown) date) F L 05/08/22 unknown) 10:37 (unknown) (no (unknown) (unknown) Thyroid nodule (units (unknown) date) (-1997) unknown) (unknown) (no (unknown) (unknown) Time Seen by (units (u nknown) date) Provider: unknown) 05/08/22 11:02 (unknown) (no (unknown) (unknown) Varicose vein of (units (unknown) date) leg unknown) (unknown) (no (unknown) (unknown) Vital Signs (units (un known) date) unknown) (unknown) (no (unknown) (unknown) alcohol intake (units (unknown) date) frequency: a few unknown) times a month (unknown) (no (unknown) (unknown) alcohol intake: (units (unknown) date) current unknown) (unknown) (no (unknown) (unknown) household (units (unkn own) date) members: spouse unknown) and children (unknown) (no (unknown) (unknown) lives (units (unkno wn) date) independently: unknown) Yes (unknown) (no (unknown) (unknown) post op (units (unkno wn) date) prescription. has unknown) not yet started (unknown) (no (unknown) (unknown) thyroid (pork) (units (unknown) date) 60 mg tablet 120 unknown) mg PO DAILY 08/05/19 09/28/21 (unknown) (no (unknown) (unknown) thyroid (pork) (units (unknown) date) [[facility] Thyroid] unknown) 60 mg tablet (unknown) (no (unknown) (unknown) tramadol 50 mg (units (unknown) date) tablet 50 mg PO unknown) Q6H PRN pain #20 tabs 09/24/21 (unknown) (no (unknown) (unknown) tramadol 50 mg (units (unknown) date) tablet unknown) Result panel 2 (unknown) (no (unknown) (unknown) (no value) (units (unk nown) date) unknown) (unknown) (no (unknown) (unknown) ([facility] Thyroid) (units (unknown) date) unknown) (unknown) (no (unknown) (unknown) 12 point review (units (unknown) date) of systems is unknown) negative except for those stated above (unknown) (no (unknown) (unknown) 120 mg PO DAILY (units (unknown) date) unknown) (unknown) (no (unknown) (unknown) 46-year-old (units (un known) date) female nonsmoker unknown) with history of hypothyroid presents with (unknown) (no (unknown) (unknown) 50 mg PO Q6H PRN (units (unknown) date) (Reason: pain) unknown) Qty: 20 0RF (unknown) (no (unknown) (unknown) 607 (units (unkno wn) date) unknown) (unknown) (no (unknown) (unknown) Abnormal Pap (units (u nknown) date) smear of cervix unknown) (-1998) (unknown) (no (unknown) (unknown) Acne () (units (u nknown) date) unknown) (unknown) (no (unknown) (unknown) Age/Sex: 46 / F (units (unknown) date) unknown) (unknown) (no (unknown) (unknown) Allergies (units (unkn own) date) unknown) (unknown) (no (unknown) (unknown) Allergy/AdvReac (units (unknown) date) Type Severity unknown) Reaction Status Date / Time (unknown) (no (unknown) (unknown) Anemia (units (unkno wn) date) unknown) (unknown) (no (unknown) (unknown) Anesthesia (units (unk nown) date) unknown) (unknown) (no (unknown) (unknown) BACK: Nontender (units (unknown) date) without deformity unknown) or crepitance. No flank tenderness. (unknown) (no (unknown) (unknown) Blood Pressure (units (unknown) date) 117/70 05/08/22 unknown) 10:37 (unknown) (no (unknown) (unknown) CARDIOVASCULAR: (units (unknown) date) Denies chest unknown) pain, palpitations, orthopnea, edema, (unknown) (no (unknown) (unknown) CARDIOVASCULAR: (units (unknown) date) Regular rate and unknown) rhythm without murmurs, gallops, or rubs. (unknown) (no (unknown) (unknown) Chicken pox (units (un known) date) () unknown) (unknown) (no (unknown) (unknown) Chief complaint: (units (unknown) date) Medical Clearance unknown) (unknown) (no (unknown) (unknown) Oscar Yañez, (units (unknown) date) [Primary Care unknown) Provider] (unknown) (no (unknown) (unknown) : 1975 (units (unknown) date) Acct:[id number] unknown) (unknown) (no (unknown) (unknown) DVT (deep venous (units (unknown) date) thrombosis) unknown) () (unknown) (no (unknown) (unknown) Date of Service: (units (unknown) date) 05/08/22 unknown) (unknown) (no (unknown) (unknown) Departure (units (unkn own) date) unknown) (unknown) (no (unknown) (unknown) Discharge Plan (units (unknown) date) unknown) (unknown) (no (unknown) (unknown) ENT: Nose (units (unkn own) date) without bleeding, unknown) purulent drainage. Throat without erythema, (unknown) (no (unknown) (unknown) ER Physician: (units ( unknown) date) Thien Magallanes unknown) D.O. (unknown) (no (unknown) (unknown) EXTREMITIES: No (units (unknown) date) edema or joint unknown) tenderness. (unknown) (no (unknown) (unknown) EYES: Pupils (units (u nknown) date) equal round and unknown) reactive. Extraocular motions intact. No scleral (unknown) (no (unknown) (unknown) Emergency Report (units (unknown) date) unknown) (unknown) (no (unknown) (unknown) Exam Narrative: (units (unknown) date) unknown) (unknown) (no (unknown) (unknown) Exam (units (unkno wn) date) unknown) (unknown) (no (unknown) (unknown) Family History (units (unknown) date) (Reviewed unknown) 05/08/22 @ 12:33 by Thien Magallanes DO) (unknown) (no (unknown) (unknown) Father (units (unknown) date) Congestive heart unknown) failure (unknown) (no (unknown) (unknown) GASTROINTESTINAL (units (unknown) date) : Abdomen soft, unknown) non-tender, nondistended. (unknown) (no (unknown) (unknown) GASTROINTESTINAL (units (unknown) date) : Denies nausea, unknown) vomiting, abdominal pain, diarrhea, (unknown) (no (unknown) (unknown) GENERAL: Denies (units (unknown) date) chills, fatigue, unknown) malaise, fever, sweats. (unknown) (no (unknown) (unknown) GENERAL: [46] (units ( unknown) date) year old patient unknown) appears stated age. Well-developed patient, in (unknown) (no (unknown) (unknown) : Denies (units (unk nown) date) dysuria, unknown) frequency, incontinence, hematuria, urinary retention. (unknown) (no (unknown) (unknown) General (units (unkno wn) date) unknown) (unknown) (no (unknown) (unknown) Graves disease (units (unknown) date) () unknown) (unknown) (no (unknown) (unknown) HEAD: (units (unkno wn) date) Atraumatic. unknown) Normocephalic. (unknown) (no (unknown) (unknown) HEENT: Denies (units ( unknown) date) sinus pain, ear unknown) pain, sore throat, difficulty swallowing, (unknown) (no (unknown) (unknown) HPI - Medical (units ( unknown) date) Clearance unknown) (unknown) (no (unknown) (unknown) HPI Narrative: (units (unknown) date) unknown) (unknown) (no (unknown) (unknown) Herpes () (units (unknown) date) unknown) (unknown) (no (unknown) (unknown) History of (units (unk nown) date) Present Illness unknown) (unknown) (no (unknown) (unknown) History of (units (unk nown) date) section unknown) () (unknown) (no (unknown) (unknown) History of (units (unk nown) date) section unknown) () (unknown) (no (unknown) (unknown) History of (units (unk nown) date) surgery (-2018) unknown) (unknown) (no (unknown) (unknown) History of (units (unk nown) date) thyroid surgery unknown) () (unknown) (no (unknown) (unknown) History of tubal (units (unknown) date) ligation unknown) () (unknown) (no (unknown) (unknown) Home Medications (units (unknown) date) unknown) (unknown) (no (unknown) (unknown) Initial Vital (units ( unknown) date) Signs unknown) (unknown) (no (unknown) (unknown) Initial Vital (units ( unknown) date) Signs: unknown) (unknown) (no (unknown) (unknown) Irregular (units (unkn own) date) menstrual cycle unknown) (unknown) (no (unknown) (unknown) [facility] (units (unknown) date) [address] unknown) [place] [address] (unknown) (no (unknown) (unknown) Label Comments: (units (unknown) date) unknown) (unknown) (no (unknown) (unknown) MUSCULOSKELETAL: (units (unknown) date) denies weakness, unknown) joint pain, or bony pain (unknown) (no (unknown) (unknown) Medical History (units (unknown) date) (Reviewed unknown) 05/08/22 @ 12:33 by Thien Magallanes DO) (unknown) (no (unknown) (unknown) Medication (units (unk nown) date) Instructions unknown) Recorded Confirmed (unknown) (no (unknown) (unknown) Medication (units (unk nown) date) Instructions unknown) Recorded (unknown) (no (unknown) (unknown) Mode of arrival: (units (unknown) date) Ambulatory unknown) (unknown) (no (unknown) (unknown) Mother (units (unkno wn) date) Hyperlipidemia unknown) (unknown) (no (unknown) (unknown) NECK: Trachea (units ( unknown) date) midline. Non unknown) tender (unknown) (no (unknown) (unknown) NEURO: AOx3. (units (u nknown) date) unknown) (unknown) (no (unknown) (unknown) NEUROLOGIC: (units (un known) date) Denies weakness, unknown) headache, numbness, change in speech, confusion, (unknown) (no (unknown) (unknown) Narrative (units (unkn own) date) unknown) (unknown) (no (unknown) (unknown) Narrative: (units (unk nown) date) unknown) (unknown) (no (unknown) (unknown) No Action (units (unkn own) date) unknown) (unknown) (no (unknown) (unknown) No Known Drug (units ( unknown) date) Allergies Allergy unknown) Verified 09/27/21 15:03 (unknown) (no (unknown) (unknown) NyQuil and even (units (unknown) date) smoked cannabis unknown) last night for the 1st time in 30 years. She is (unknown) (no (unknown) (unknown) Oxygen Delivery (units (unknown) date) Method 05/08/22 unknown) 10:37 (unknown) (no (unknown) (unknown) PSYCHIATRIC: No (units (unknown) date) concerning unknown) psychosocial issues. (unknown) (no (unknown) (unknown) Painful (units (unkno wn) date) menstrual periods unknown) (-2017) (unknown) (no (unknown) (unknown) Patient History (units (unknown) date) unknown) (unknown) (no (unknown) (unknown) Patient: (units (unkno wn) date) Alta Betancourt MR#: unknown) [id number] (unknown) (no (unknown) (unknown) Prescriptions: (units (unknown) date) unknown) (unknown) (no (unknown) (unknown) Previous Rx's (units ( unknown) date) unknown) (unknown) (no (unknown) (unknown) Pulse Oximetry (units (unknown) date) 99 05/08/22 10:37 unknown) (unknown) (no (unknown) (unknown) Pulse Rate 76 (units ( unknown) date) 05/08/22 10:37 unknown) (unknown) (no (unknown) (unknown) RESPIRATORY: (units (un known) date) Clear to unknown) auscultation. Breath sounds equal bilaterally. No wheezes, (unknown) (no (unknown) (unknown) RESPIRATORY: (units (u nknown) date) Denies dyspnea, unknown) cough, wheezing, hemoptysis, sputum. (unknown) (no (unknown) (unknown) Referrals: (units (unk nown) date) unknown) (unknown) (no (unknown) (unknown) Related (units (unkno wn) date) Information unknown) (unknown) (no (unknown) (unknown) Respiratory Rate (units (unknown) date) 18 05/08/22 10:37 unknown) (unknown) (no (unknown) (unknown) Review of (units (unkn own) date) Systems unknown) (unknown) (no (unknown) (unknown) SKIN: Denies (units (u nknown) date) rash, skin unknown) lesions, or other (unknown) (no (unknown) (unknown) SKIN: No rash or (units (unknown) date) erythema of unknown) visible areas (unknown) (no (unknown) (unknown) Signed By: (units (unk nown) date) unknown) (unknown) (no (unknown) (unknown) Smoking Status: (units (unknown) date) Former smoker unknown) (unknown) (no (unknown) (unknown) Social History (units (unknown) date) (Reviewed unknown) 05/08/22 @ 12:33 by Thien Magallanes DO) (unknown) (no (unknown) (unknown) Source: patient (units (unknown) date) unknown) (unknown) (no (unknown) (unknown) Stated (units (unkno wn) date) complaint: unknown) haven't slept in a week sleeping issues since December (unknown) (no (unknown) (unknown) Substance Use (units ( unknown) date) Type: does not unknown) use (unknown) (no (unknown) (unknown) Surgical History (units (unknown) date) (Reviewed unknown) 05/08/22 @ 12:33 by Thien Magallanes DO) (unknown) (no (unknown) (unknown) Temperature 96.9 (units (unknown) date) F L 05/08/22 unknown) 10:37 (unknown) (no (unknown) (unknown) Thyroid nodule (units (unknown) date) (-1997) unknown) (unknown) (no (unknown) (unknown) Time Seen by (units (u nknown) date) Provider: unknown) 05/08/22 11:02 (unknown) (no (unknown) (unknown) Varicose vein of (units (unknown) date) leg unknown) (unknown) (no (unknown) (unknown) Vital Signs (units (un known) date) unknown) (unknown) (no (unknown) (unknown) alcohol intake (units (unknown) date) frequency: a few unknown) times a month (unknown) (no (unknown) (unknown) alcohol intake: (units (unknown) date) current unknown) (unknown) (no (unknown) (unknown) constipation, (units ( unknown) date) melena. unknown) (unknown) (no (unknown) (unknown) dizziness. (units (unk nown) date) unknown) (unknown) (no (unknown) (unknown) fatigued and (units (u nknown) date) exhausted. She unknown) denies any significant stressors at home, change in (unknown) (no (unknown) (unknown) few months. She (units (unknown) date) states that she unknown) has tried everything she can think of regarding (unknown) (no (unknown) (unknown) her sleep (units (unkn own) date) routine including unknown) lack of screens, no caffeine after 10:00 a.m., (unknown) (no (unknown) (unknown) here today (units (unkn own) date) because she unknown) states she is not slept 1 minute for the past week and is (unknown) (no (unknown) (unknown) household (units (unkn own) date) members: spouse unknown) and children (unknown) (no (unknown) (unknown) icterus. No (units (un known) date) injection or unknown) drainage. (unknown) (no (unknown) (unknown) lives (units (unkno wn) date) independently: unknown) Yes (unknown) (no (unknown) (unknown) mild distress. (units (unknown) date) Clearly unknown) frustrated (unknown) (no (unknown) (unknown) post op (units (unkno wn) date) prescription. has unknown) not yet started (unknown) (no (unknown) (unknown) rales, or (units (unkn own) date) rhonchi. unknown) (unknown) (no (unknown) (unknown) seizures, (units (unkn own) date) incoordination. unknown) (unknown) (no (unknown) (unknown) significant (units (un known) date) other and a chief unknown) complaint of difficulty with sleep for the past (unknown) (no (unknown) (unknown) thyroid (pork) (units (unknown) date) 60 mg tablet 120 unknown) mg PO DAILY 08/05/19 09/28/21 (unknown) (no (unknown) (unknown) thyroid (pork) (units (unknown) date) [[facility] Thyroid] unknown) 60 mg tablet (unknown) (no (unknown) (unknown) tonsillar (units (unkn own) date) hypertrophy or unknown) exudate. Airway patent. (unknown) (no (unknown) (unknown) tramadol 50 mg (units (unknown) date) tablet 50 mg PO unknown) Q6H PRN pain #20 tabs 09/24/21 (unknown) (no (unknown) (unknown) tramadol 50 mg (units (unknown) date) tablet unknown) (unknown) (no (unknown) (unknown) various (units (unkno wn) date) [id number] unknown) medications including Benadryl, melatonin, Unisom, (unknown) (no (unknown) (unknown) work patterns, (units (unknown) date) new unknown) [id number] medications or supplements. Result panel 3 (unknown) (no date) (unknown) (unknown) 1.0 % (unkn own) (unknown) (no date) (unknown) (unknown) 1.2 % (unkn own) (unknown) (no date) (unknown) (unknown) 100 /ul (unkn own) (unknown) (no date) (unknown) (unknown) 100 /ul (unkn own) (unknown) (no date) (unknown) (unknown) 13.1 g/dl (unkn own) (unknown) (no date) (unknown) (unknown) 13.9 % (unkn own) (unknown) (no date) (unknown) (unknown) 1600 /ul (unkn own) (unknown) (no date) (unknown) (unknown) 28.4 pg (unkn own) (unknown) (no date) (unknown) (unknown) 28.9 % (unkn own) (unknown) (no date) (unknown) (unknown) 300 /ul (unkn own) (unknown) (no date) (unknown) (unknown) 310 x10 3/ul (unkn own) (unknown) (no date) (unknown) (unknown) 33.6 % (unkn own) (unknown) (no date) (unknown) (unknown) 3400 /ul (unkn own) (unknown) (no date) (unknown) (unknown) 38.9 % (unkn own) (unknown) (no date) (unknown) (unknown) 4.59 x10 6/ul (unkn own) (unknown) (no date) (unknown) (unknown) 5.4 x10 3/ul (unkn own) (unknown) (no date) (unknown) (unknown) 6.1 % (unkn own) (unknown) (no date) (unknown) (unknown) 62.8 % (unkn own) (unknown) (no date) (unknown) (unknown) 84.7 fl (unkn own) Result panel 4 (unknown) (no date) (unknown) (unknown) > 60 ml/min (unkn own) (unknown) (no date) (unknown) (unknown) > 60 ml/min (unkn own) (unknown) (no date) (unknown) (unknown) 0.70 mg/dl (unkn own) (unknown) (no date) (unknown) (unknown) 104 mmol/l (unkn own) (unknown) (no date) (unknown) (unknown) 139 mmol/l (unkn own) (unknown) (no date) (unknown) (unknown) 15 mg/dl (unkn own) (unknown) (no date) (unknown) (unknown) 21.4 (units unknown) (unknown) (unknown) (no date) (unknown) (unknown) 27 mmol/l (unkn own) (unknown) (no date) (unknown) (unknown) 4.7 mmol/l (unkn own) (unknown) (no date) (unknown) (unknown) 78 mg/dl (unkn own) (unknown) (no date) (unknown) (unknown) 78 mg/dl (unkn own) (unknown) (no date) (unknown) (unknown) 9.1 mg/dl (unkn own) Result panel 5 (unknown) (no (unknown) (unknown) (no value) (units (unk nown) date) unknown) (unknown) (no (unknown) (unknown) ([facility] Thyroid) (units (unknown) date) unknown) (unknown) (no (unknown) (unknown) 05/08/22 (units (unkno wn) date) 05/08/22 unknown) Range/Units (unknown) (no (unknown) (unknown) 05/08/22 12:40 (units (unknown) date) unknown) (unknown) (no (unknown) (unknown) 12 point review (units (unknown) date) of systems is unknown) negative except for those stated above (unknown) (no (unknown) (unknown) 120 mg PO DAILY (units (unknown) date) unknown) (unknown) (no (unknown) (unknown) 12:40 12:40 (units (un known) date) unknown) (unknown) (no (unknown) (unknown) 46-year-old (units (un known) date) female nonsmoker unknown) with history of hypothyroid presents with (unknown) (no (unknown) (unknown) 50 mg PO Q6H PRN (units (unknown) date) (Reason: pain) unknown) Qty: 20 0RF (unknown) (no (unknown) (unknown) 607 (units (unkno wn) date) unknown) (unknown) (no (unknown) (unknown) Abnormal Pap (units (u nknown) date) smear of cervix unknown) () (unknown) (no (unknown) (unknown) Acne () (units (u nknown) date) unknown) (unknown) (no (unknown) (unknown) Age/Sex: 46 / F (units (unknown) date) unknown) (unknown) (no (unknown) (unknown) Allergies (units (unkn own) date) unknown) (unknown) (no (unknown) (unknown) Allergy/AdvReac (units (unknown) date) Type Severity unknown) Reaction Status Date / Time (unknown) (no (unknown) (unknown) Anemia (units (unkno wn) date) unknown) (unknown) (no (unknown) (unknown) Anesthesia (units (unk nown) date) unknown) (unknown) (no (unknown) (unknown) BACK: Nontender (units (unknown) date) without deformity unknown) or crepitance. No flank tenderness. (unknown) (no (unknown) (unknown) BUN 15 (7-17) (units ( unknown) date) mg/dL unknown) (unknown) (no (unknown) (unknown) BUN/Creatinine (units (unknown) date) Ratio 21.4 (6-22) unknown) (unknown) (no (unknown) (unknown) Baso # (Auto) (units ( unknown) date) 100 (0-100) /uL unknown) (unknown) (no (unknown) (unknown) Baso % (Auto) (units ( unknown) date) 1.0 (0-2) % unknown) (unknown) (no (unknown) (unknown) Blood Pressure (units (unknown) date) 117/70 05/08/22 unknown) 10:37 (unknown) (no (unknown) (unknown) CARDIOVASCULAR: (units (unknown) date) Denies chest unknown) pain, palpitations, orthopnea, edema, (unknown) (no (unknown) (unknown) CARDIOVASCULAR: (units (unknown) date) Regular rate and unknown) rhythm without murmurs, gallops, or rubs. (unknown) (no (unknown) (unknown) Calcium 9.1 (units (un known) date) (8.4-10.2) mg/dL unknown) (unknown) (no (unknown) (unknown) Carbon Dioxide (units (unknown) date) 27 (22-32) mmol/L unknown) (unknown) (no (unknown) (unknown) Chicken pox (units (un known) date) () unknown) (unknown) (no (unknown) (unknown) Chief complaint: (units (unknown) date) Medical Clearance unknown) (unknown) (no (unknown) (unknown) Chloride 104 (units (u nknown) date) (98-107) mmol/L unknown) (unknown) (no (unknown) (unknown) Oscar Yañez, (units (unknown) date) [Primary Care unknown) Provider] (unknown) (no (unknown) (unknown) Creatinine 0.70 (units (unknown) date) (0.52-1.04) mg/dL unknown) (unknown) (no (unknown) (unknown) : 1975 (units (unknown) date) Acct:[id number] unknown) (unknown) (no (unknown) (unknown) DVT (deep venous (units (unknown) date) thrombosis) unknown) () (unknown) (no (unknown) (unknown) Date of Service: (units (unknown) date) 05/08/22 unknown) (unknown) (no (unknown) (unknown) Departure (units (unkn own) date) unknown) (unknown) (no (unknown) (unknown) Discharge Plan (units (unknown) date) unknown) (unknown) (no (unknown) (unknown) ENT: Nose (units (unkn own) date) without bleeding, unknown) purulent drainage. Throat without erythema, (unknown) (no (unknown) (unknown) ER Physician: (units ( unknown) date) Thien Magallanes unknown) D.O. (unknown) (no (unknown) (unknown) EXTREMITIES: No (units (unknown) date) edema or joint unknown) tenderness. (unknown) (no (unknown) (unknown) EYES: Pupils (units (u nknown) date) equal round and unknown) reactive. Extraocular motions intact. No scleral (unknown) (no (unknown) (unknown) Emergency Report (units (unknown) date) unknown) (unknown) (no (unknown) (unknown) Eos # (Auto) 100 (units (unknown) date) (0-450) /uL unknown) (unknown) (no (unknown) (unknown) Eos % (Auto) 1.2 (units (unknown) date) L (2-4) % unknown) (unknown) (no (unknown) (unknown) Estimated GFR > (units (unknown) date) 60 (>60) mL/min unknown) (unknown) (no (unknown) (unknown) Exam Narrative: (units (unknown) date) unknown) (unknown) (no (unknown) (unknown) Exam (units (unkno wn) date) unknown) (unknown) (no (unknown) (unknown) Family History (units (unknown) date) (Reviewed unknown) 05/08/22 @ 12:33 by Thien Magallanes DO) (unknown) (no (unknown) (unknown) Father (units (unknown) date) Congestive heart unknown) failure (unknown) (no (unknown) (unknown) GASTROINTESTINAL (units (unknown) date) : Abdomen soft, unknown) non-tender, nondistended. (unknown) (no (unknown) (unknown) GASTROINTESTINAL (units (unknown) date) : Denies nausea, unknown) vomiting, abdominal pain, diarrhea, (unknown) (no (unknown) (unknown) GENERAL: Denies (units (unknown) date) chills, fatigue, unknown) malaise, fever, sweats. (unknown) (no (unknown) (unknown) GENERAL: [46] (units ( unknown) date) year old patient unknown) appears stated age. Well-developed patient, in (unknown) (no (unknown) (unknown) : Denies (units (unk nown) date) dysuria, unknown) frequency, incontinence, hematuria, urinary retention. (unknown) (no (unknown) (unknown) General (units (unkno wn) date) unknown) (unknown) (no (unknown) (unknown) Glucose 78 (units (unk nown) date) (70-100) mg/dL unknown) (unknown) (no (unknown) (unknown) Graves disease (units (unknown) date) () unknown) (unknown) (no (unknown) (unknown) HEAD: (units (unkno wn) date) Atraumatic. unknown) Normocephalic. (unknown) (no (unknown) (unknown) HEENT: Denies (units ( unknown) date) sinus pain, ear unknown) pain, sore throat, difficulty swallowing, (unknown) (no (unknown) (unknown) HPI - Medical (units ( unknown) date) Clearance unknown) (unknown) (no (unknown) (unknown) HPI Narrative: (units (unknown) date) unknown) (unknown) (no (unknown) (unknown) Hct 38.9 (36-46) (units (unknown) date) % unknown) (unknown) (no (unknown) (unknown) Herpes (-1990) (units (unknown) date) unknown) (unknown) (no (unknown) (unknown) Hgb 13.1 (units (unkno wn) date) (12.0-16.0) g/dL unknown) (unknown) (no (unknown) (unknown) History of (units (unk nown) date) Present Illness unknown) (unknown) (no (unknown) (unknown) History of (units (unk nown) date) section unknown) () (unknown) (no (unknown) (unknown) History of (units (unk nown) date) section unknown) () (unknown) (no (unknown) (unknown) History of (units (unk nown) date) surgery (-2018) unknown) (unknown) (no (unknown) (unknown) History of (units (unk nown) date) thyroid surgery unknown) () (unknown) (no (unknown) (unknown) History of tubal (units (unknown) date) ligation unknown) (-03/1999) (unknown) (no (unknown) (unknown) Home Medications (units (unknown) date) unknown) (unknown) (no (unknown) (unknown) Initial Vital (units ( unknown) date) Signs unknown) (unknown) (no (unknown) (unknown) Initial Vital (units ( unknown) date) Signs: unknown) (unknown) (no (unknown) (unknown) Irregular (units (unkn own) date) menstrual cycle unknown) (unknown) (no (unknown) (unknown) [facility] (units (unknown) date) [address] unknown) [place] [address] (unknown) (no (unknown) (unknown) Lab Data (units (unkno wn) date) unknown) (unknown) (no (unknown) (unknown) Lab Results (units (un known) date) unknown) (unknown) (no (unknown) (unknown) Label Comments: (units (unknown) date) unknown) (unknown) (no (unknown) (unknown) Labs: (units (unkno wn) date) unknown) (unknown) (no (unknown) (unknown) Lymph # (Auto) (units (unknown) date) 1600 (6863-2052) unknown) /uL (unknown) (no (unknown) (unknown) Lymph % (Auto) (units (unknown) date) 28.9 (25-40) % unknown) (unknown) (no (unknown) (unknown) MCH 28.4 (26-34) (units (unknown) date) PG unknown) (unknown) (no (unknown) (unknown) MCHC 33.6 (units (unkn own) date) (30-36) % unknown) (unknown) (no (unknown) (unknown) MCV 84.7 (units (unkno wn) date) (80-100) fL unknown) (unknown) (no (unknown) (unknown) MDM - Medical (units ( unknown) date) Clearance unknown) (unknown) (no (unknown) (unknown) MUSCULOSKELETAL: (units (unknown) date) denies weakness, unknown) joint pain, or bony pain (unknown) (no (unknown) (unknown) Medical History (units (unknown) date) (Reviewed unknown) 05/08/22 @ 12:33 by Thien Magallanes DO) (unknown) (no (unknown) (unknown) Medication (units (unk nown) date) Instructions unknown) Recorded Confirmed (unknown) (no (unknown) (unknown) Medication (units (unk nown) date) Instructions unknown) Recorded (unknown) (no (unknown) (unknown) Mode of arrival: (units (unknown) date) Ambulatory unknown) (unknown) (no (unknown) (unknown) [place] # (Auto) (units ( unknown) date) 300 (0-900) /uL unknown) (unknown) (no (unknown) (unknown) [place] % (Auto) (units ( unknown) date) 6.1 (3-14) % unknown) (unknown) (no (unknown) (unknown) Mother (units (unkno wn) date) Hyperlipidemia unknown) (unknown) (no (unknown) (unknown) NECK: Trachea (units ( unknown) date) midline. Non unknown) tender (unknown) (no (unknown) (unknown) NEURO: AOx3. (units (u nknown) date) unknown) (unknown) (no (unknown) (unknown) NEUROLOGIC: (units (un known) date) Denies weakness, unknown) headache, numbness, change in speech, confusion, (unknown) (no (unknown) (unknown) Narrative (units (unkn own) date) unknown) (unknown) (no (unknown) (unknown) Narrative: (units (unk nown) date) unknown) (unknown) (no (unknown) (unknown) Neut # (Auto) (units ( unknown) date) 3400 (6867-0343) unknown) /uL (unknown) (no (unknown) (unknown) Neut % (Auto) (units ( unknown) date) 62.8 (50-75) % unknown) (unknown) (no (unknown) (unknown) No Action (units (unkn own) date) unknown) (unknown) (no (unknown) (unknown) No Known Drug (units ( unknown) date) Allergies Allergy unknown) Verified 09/27/21 15:03 (unknown) (no (unknown) (unknown) NyQuil and even (units (unknown) date) smoked cannabis unknown) last night for the 1st time in 30 years. She is (unknown) (no (unknown) (unknown) Oxygen Delivery (units (unknown) date) Method 05/08/22 unknown) 10:37 (unknown) (no (unknown) (unknown) PSYCHIATRIC: No (units (unknown) date) concerning unknown) psychosocial issues. (unknown) (no (unknown) (unknown) Painful (units (unkno wn) date) menstrual periods unknown) (-2017) (unknown) (no (unknown) (unknown) Patient History (units (unknown) date) unknown) (unknown) (no (unknown) (unknown) Patient: (units (unkno wn) date) Alta Betancourt MR#: unknown) [id number] (unknown) (no (unknown) (unknown) Plt Count 310 (units ( unknown) date) (150-400) X103/uL unknown) (unknown) (no (unknown) (unknown) Potassium 4.7 (units ( unknown) date) (3.4-5.1) mmol/L unknown) (unknown) (no (unknown) (unknown) Prescriptions: (units (unknown) date) unknown) (unknown) (no (unknown) (unknown) Previous Rx's (units ( unknown) date) unknown) (unknown) (no (unknown) (unknown) Pulse Oximetry (units (unknown) date) 99 05/08/22 10:37 unknown) (unknown) (no (unknown) (unknown) Pulse Rate 76 (units ( unknown) date) 05/08/22 10:37 unknown) (unknown) (no (unknown) (unknown) RBC 4.59 (units (unkno wn) date) (4.0-5.2) X106/uL unknown) (unknown) (no (unknown) (unknown) RDW 13.9 (units (unkno wn) date) (11.6-14.8) % unknown) (unknown) (no (unknown) (unknown) RESPIRATORY: (units (un known) date) Clear to unknown) auscultation. Breath sounds equal bilaterally. No wheezes, (unknown) (no (unknown) (unknown) RESPIRATORY: (units (u nknown) date) Denies dyspnea, unknown) cough, wheezing, hemoptysis, sputum. (unknown) (no (unknown) (unknown) Referrals: (units (unk nown) date) unknown) (unknown) (no (unknown) (unknown) Related (units (unkno wn) date) Information unknown) (unknown) (no (unknown) (unknown) Respiratory Rate (units (unknown) date) 18 05/08/22 10:37 unknown) (unknown) (no (unknown) (unknown) Result diagrams: (units (unknown) date) unknown) (unknown) (no (unknown) (unknown) Review of (units (unkn own) date) Systems unknown) (unknown) (no (unknown) (unknown) SKIN: Denies (units (u nknown) date) rash, skin unknown) lesions, or other (unknown) (no (unknown) (unknown) SKIN: No rash or (units (unknown) date) erythema of unknown) visible areas (unknown) (no (unknown) (unknown) Signed By: (units (unk nown) date) unknown) (unknown) (no (unknown) (unknown) Smoking Status: (units (unknown) date) Former smoker unknown) (unknown) (no (unknown) (unknown) Social History (units (unknown) date) (Reviewed unknown) 05/08/22 @ 12:33 by Thien Magallanes DO) (unknown) (no (unknown) (unknown) Sodium 139 (units (unk nown) date) (137-145) mmol/L unknown) (unknown) (no (unknown) (unknown) Source: patient (units (unknown) date) unknown) (unknown) (no (unknown) (unknown) Stated (units (unkno wn) date) complaint: unknown) haven't slept in a week sleeping issues since December (unknown) (no (unknown) (unknown) Substance Use (units ( unknown) date) Type: does not unknown) use (unknown) (no (unknown) (unknown) Surgical History (units (unknown) date) (Reviewed unknown) 05/08/22 @ 12:33 by Thien Magallanes DO) (unknown) (no (unknown) (unknown) Temperature 96.9 (units (unknown) date) F L 05/08/22 unknown) 10:37 (unknown) (no (unknown) (unknown) Thyroid nodule (units (unknown) date) (-1997) unknown) (unknown) (no (unknown) (unknown) Time Seen by (units (u nknown) date) Provider: unknown) 05/08/22 11:02 (unknown) (no (unknown) (unknown) Varicose vein of (units (unknown) date) leg unknown) (unknown) (no (unknown) (unknown) Vital Signs (units (un known) date) unknown) (unknown) (no (unknown) (unknown) WBC 5.4 (units (unkno wn) date) (4.5-11.0) unknown) X103/uL (unknown) (no (unknown) (unknown) [Embedded Image (units (unknown) date) Not Available] unknown) (unknown) (no (unknown) (unknown) alcohol intake (units (unknown) date) frequency: a few unknown) times a month (unknown) (no (unknown) (unknown) alcohol intake: (units (unknown) date) current unknown) (unknown) (no (unknown) (unknown) constipation, (units ( unknown) date) melena. unknown) (unknown) (no (unknown) (unknown) dizziness. (units (unk nown) date) unknown) (unknown) (no (unknown) (unknown) fatigued and (units (u nknown) date) exhausted. She unknown) denies any significant stressors at home, change in (unknown) (no (unknown) (unknown) few months. She (units (unknown) date) states that she unknown) has tried everything she can think of regarding (unknown) (no (unknown) (unknown) her sleep (units (unkn own) date) routine including unknown) lack of screens, no caffeine after 10:00 a.m., (unknown) (no (unknown) (unknown) here today (units (unkn own) date) because she unknown) states she is not slept 1 minute for the past week and is (unknown) (no (unknown) (unknown) household (units (unkn own) date) members: spouse unknown) and children (unknown) (no (unknown) (unknown) icterus. No (units (un known) date) injection or unknown) drainage. (unknown) (no (unknown) (unknown) lives (units (unkno wn) date) independently: unknown) Yes (unknown) (no (unknown) (unknown) mild distress. (units (unknown) date) Clearly unknown) frustrated (unknown) (no (unknown) (unknown) post op (units (unkno wn) date) prescription. has unknown) not yet started (unknown) (no (unknown) (unknown) rales, or (units (unkn own) date) rhonchi. unknown) (unknown) (no (unknown) (unknown) seizures, (units (unkn own) date) incoordination. unknown) (unknown) (no (unknown) (unknown) significant (units (un known) date) other and a chief unknown) complaint of difficulty with sleep for the past (unknown) (no (unknown) (unknown) thyroid (pork) (units (unknown) date) 60 mg tablet 120 unknown) mg PO DAILY 08/05/19 09/28/21 (unknown) (no (unknown) (unknown) thyroid (pork) (units (unknown) date) [[place]s Thyroid] unknown) 60 mg tablet (unknown) (no (unknown) (unknown) tonsillar (units (unkn own) date) hypertrophy or unknown) exudate. Airway patent. (unknown) (no (unknown) (unknown) tramadol 50 mg (units (unknown) date) tablet 50 mg PO unknown) Q6H PRN pain #20 tabs 09/24/21 (unknown) (no (unknown) (unknown) tramadol 50 mg (units (unknown) date) tablet unknown) (unknown) (no (unknown) (unknown) various (units (unkno wn) date) [id number] unknown) medications including Benadryl, melatonin, Unisom, (unknown) (no (unknown) (unknown) work patterns, (units (unknown) date) new unknown) [id number] medications or supplements. Result panel 6 (unknown) (no date) (unknown) (unknown) 2.30 uiu/ml (unkn own) Result panel 7 (unknown) (no (unknown) (unknown) (no value) (units (unk nown) date) unknown) (unknown) (no (unknown) (unknown) ([place]s Thyroid) (units (unknown) date) unknown) (unknown) (no (unknown) (unknown) 05/08/22 (units (unkno wn) date) 05/08/22 unknown) Range/Units (unknown) (no (unknown) (unknown) 05/08/22 12:40 (units (unknown) date) unknown) (unknown) (no (unknown) (unknown) 12 point review (units (unknown) date) of systems is unknown) negative except for those stated above (unknown) (no (unknown) (unknown) 120 mg PO DAILY (units (unknown) date) unknown) (unknown) (no (unknown) (unknown) 12:40 12:40 (units (un known) date) unknown) (unknown) (no (unknown) (unknown) 46-year-old (units (un known) date) female nonsmoker unknown) with history of hypothyroid presents with (unknown) (no (unknown) (unknown) 50 mg PO Q6H PRN (units (unknown) date) (Reason: pain) unknown) Qty: 20 0RF (unknown) (no (unknown) (unknown) 607 (units (unkno wn) date) unknown) (unknown) (no (unknown) (unknown) Abnormal Pap (units (u nknown) date) smear of cervix unknown) () (unknown) (no (unknown) (unknown) Acne () (units (u nknown) date) unknown) (unknown) (no (unknown) (unknown) Age/Sex: 46 / F (units (unknown) date) unknown) (unknown) (no (unknown) (unknown) Allergies (units (unkn own) date) unknown) (unknown) (no (unknown) (unknown) Allergy/AdvReac (units (unknown) date) Type Severity unknown) Reaction Status Date / Time (unknown) (no (unknown) (unknown) Anemia (units (unkno wn) date) unknown) (unknown) (no (unknown) (unknown) Anesthesia (units (unk nown) date) unknown) (unknown) (no (unknown) (unknown) BACK: Nontender (units (unknown) date) without deformity unknown) or crepitance. No flank tenderness. (unknown) (no (unknown) (unknown) BUN 15 (7-17) (units ( unknown) date) mg/dL unknown) (unknown) (no (unknown) (unknown) BUN/Creatinine (units (unknown) date) Ratio 21.4 (6-22) unknown) (unknown) (no (unknown) (unknown) Baso # (Auto) (units ( unknown) date) 100 (0-100) /uL unknown) (unknown) (no (unknown) (unknown) Baso % (Auto) (units ( unknown) date) 1.0 (0-2) % unknown) (unknown) (no (unknown) (unknown) Blood Pressure (units (unknown) date) 117/70 05/08/22 unknown) 10:37 (unknown) (no (unknown) (unknown) CARDIOVASCULAR: (units (unknown) date) Denies chest unknown) pain, palpitations, orthopnea, edema, (unknown) (no (unknown) (unknown) CARDIOVASCULAR: (units (unknown) date) Regular rate and unknown) rhythm without murmurs, gallops, or rubs. (unknown) (no (unknown) (unknown) Calcium 9.1 (units (un known) date) (8.4-10.2) mg/dL unknown) (unknown) (no (unknown) (unknown) Carbon Dioxide (units (unknown) date) 27 (22-32) mmol/L unknown) (unknown) (no (unknown) (unknown) Chicken pox (units (un known) date) () unknown) (unknown) (no (unknown) (unknown) Chief complaint: (units (unknown) date) Medical Clearance unknown) (unknown) (no (unknown) (unknown) Chloride 104 (units (u nknown) date) (98-107) mmol/L unknown) (unknown) (no (unknown) (unknown) Clinical (units (unkno wn) date) Impression: unknown) (unknown) (no (unknown) (unknown) Oscar Yañez, (units (unknown) date) [Primary Care unknown) Provider] (unknown) (no (unknown) (unknown) Creatinine 0.70 (units (unknown) date) (0.52-1.04) mg/dL unknown) (unknown) (no (unknown) (unknown) : 1975 (units (unknown) date) Acct:[id number] unknown) (unknown) (no (unknown) (unknown) DVT (deep venous (units (unknown) date) thrombosis) unknown) () (unknown) (no (unknown) (unknown) Date of Service: (units (unknown) date) 05/08/22 unknown) (unknown) (no (unknown) (unknown) Departure (units (unkn own) date) unknown) (unknown) (no (unknown) (unknown) Discharge Plan (units (unknown) date) unknown) (unknown) (no (unknown) (unknown) ENT: Nose (units (unkn own) date) without bleeding, unknown) purulent drainage. Throat without erythema, (unknown) (no (unknown) (unknown) ER Physician: (units ( unknown) date) Thien Magallanes unknown) D.O. (unknown) (no (unknown) (unknown) EXTREMITIES: No (units (unknown) date) edema or joint unknown) tenderness. (unknown) (no (unknown) (unknown) EYES: Pupils (units (u nknown) date) equal round and unknown) reactive. Extraocular motions intact. No scleral (unknown) (no (unknown) (unknown) Emergency Report (units (unknown) date) unknown) (unknown) (no (unknown) (unknown) Eos # (Auto) 100 (units (unknown) date) (0-450) /uL unknown) (unknown) (no (unknown) (unknown) Eos % (Auto) 1.2 (units (unknown) date) L (2-4) % unknown) (unknown) (no (unknown) (unknown) Estimated GFR > (units (unknown) date) 60 (>60) mL/min unknown) (unknown) (no (unknown) (unknown) Exam Narrative: (units (unknown) date) unknown) (unknown) (no (unknown) (unknown) Exam (units (unkno wn) date) unknown) (unknown) (no (unknown) (unknown) Family History (units (unknown) date) (Reviewed unknown) 05/08/22 @ 12:33 by Thien Magallanes DO) (unknown) (no (unknown) (unknown) Father (units (unknown) date) Congestive heart unknown) failure (unknown) (no (unknown) (unknown) GASTROINTESTINAL (units (unknown) date) : Abdomen soft, unknown) non-tender, nondistended. (unknown) (no (unknown) (unknown) GASTROINTESTINAL (units (unknown) date) : Denies nausea, unknown) vomiting, abdominal pain, diarrhea, (unknown) (no (unknown) (unknown) GENERAL: Denies (units (unknown) date) chills, fatigue, unknown) malaise, fever, sweats. (unknown) (no (unknown) (unknown) GENERAL: [46] (units ( unknown) date) year old patient unknown) appears stated age. Well-developed patient, in (unknown) (no (unknown) (unknown) : Denies (units (unk nown) date) dysuria, unknown) frequency, incontinence, hematuria, urinary retention. (unknown) (no (unknown) (unknown) General (units (unkno wn) date) unknown) (unknown) (no (unknown) (unknown) Glucose 78 (units (unk nown) date) (70-100) mg/dL unknown) (unknown) (no (unknown) (unknown) Graves disease (units (unknown) date) () unknown) (unknown) (no (unknown) (unknown) HEAD: (units (unkno wn) date) Atraumatic. unknown) Normocephalic. (unknown) (no (unknown) (unknown) HEENT: Denies (units ( unknown) date) sinus pain, ear unknown) pain, sore throat, difficulty swallowing, (unknown) (no (unknown) (unknown) HPI - Medical (units ( unknown) date) Clearance unknown) (unknown) (no (unknown) (unknown) HPI Narrative: (units (unknown) date) unknown) (unknown) (no (unknown) (unknown) Hct 38.9 (36-46) (units (unknown) date) % unknown) (unknown) (no (unknown) (unknown) Herpes (-1990) (units (unknown) date) unknown) (unknown) (no (unknown) (unknown) Hgb 13.1 (units (unkno wn) date) (12.0-16.0) g/dL unknown) (unknown) (no (unknown) (unknown) History of (units (unk nown) date) Present Illness unknown) (unknown) (no (unknown) (unknown) History of (units (unk nown) date) section unknown) () (unknown) (no (unknown) (unknown) History of (units (unk nown) date) section unknown) () (unknown) (no (unknown) (unknown) History of (units (unk nown) date) surgery (-2017) unknown) (unknown) (no (unknown) (unknown) History of (units (unk nown) date) thyroid surgery unknown) () (unknown) (no (unknown) (unknown) History of tubal (units (unknown) date) ligation unknown) () (unknown) (no (unknown) (unknown) Home Medications (units (unknown) date) unknown) (unknown) (no (unknown) (unknown) Initial Vital (units ( unknown) date) Signs unknown) (unknown) (no (unknown) (unknown) Initial Vital (units ( unknown) date) Signs: unknown) (unknown) (no (unknown) (unknown) Insomnia (units (unkno wn) date) unknown) (unknown) (no (unknown) (unknown) Irregular (units (unkn own) date) menstrual cycle unknown) (unknown) (no (unknown) (unknown) [facility] (units (unknown) date) [address] unknown) [place] [address] (unknown) (no (unknown) (unknown) Lab Data (units (unkno wn) date) unknown) (unknown) (no (unknown) (unknown) Lab Results (units (un known) date) unknown) (unknown) (no (unknown) (unknown) Label Comments: (units (unknown) date) unknown) (unknown) (no (unknown) (unknown) Labs: (units (unkno wn) date) unknown) (unknown) (no (unknown) (unknown) Lymph # (Auto) (units (unknown) date) 1600 (7741-1751) unknown) /uL (unknown) (no (unknown) (unknown) Lymph % (Auto) (units (unknown) date) 28.9 (25-40) % unknown) (unknown) (no (unknown) (unknown) MCH 28.4 (26-34) (units (unknown) date) PG unknown) (unknown) (no (unknown) (unknown) MCHC 33.6 (units (unkn own) date) (30-36) % unknown) (unknown) (no (unknown) (unknown) MCV 84.7 (units (unkno wn) date) (80-100) fL unknown) (unknown) (no (unknown) (unknown) MDM - Medical (units ( unknown) date) Clearance unknown) (unknown) (no (unknown) (unknown) MUSCULOSKELETAL: (units (unknown) date) denies weakness, unknown) joint pain, or bony pain (unknown) (no (unknown) (unknown) Medical History (units (unknown) date) (Reviewed unknown) 05/08/22 @ 12:33 by Thien Magallanes DO) (unknown) (no (unknown) (unknown) Medication (units (unk nown) date) Instructions unknown) Recorded Confirmed (unknown) (no (unknown) (unknown) Medication (units (unk nown) date) Instructions unknown) Recorded (unknown) (no (unknown) (unknown) Mode of arrival: (units (unknown) date) Ambulatory unknown) (unknown) (no (unknown) (unknown) [place] # (Auto) (units ( unknown) date) 300 (0-900) /uL unknown) (unknown) (no (unknown) (unknown) [place] % (Auto) (units ( unknown) date) 6.1 (3-14) % unknown) (unknown) (no (unknown) (unknown) Mother (units (unkno wn) date) Hyperlipidemia unknown) (unknown) (no (unknown) (unknown) NECK: Trachea (units ( unknown) date) midline. Non unknown) tender (unknown) (no (unknown) (unknown) NEURO: AOx3. (units (u nknown) date) unknown) (unknown) (no (unknown) (unknown) NEUROLOGIC: (units (un known) date) Denies weakness, unknown) headache, numbness, change in speech, confusion, (unknown) (no (unknown) (unknown) Narrative (units (unkn own) date) unknown) (unknown) (no (unknown) (unknown) Narrative: (units (unk nown) date) unknown) (unknown) (no (unknown) (unknown) Neut # (Auto) (units ( unknown) date) 3400 (3299-9921) unknown) /uL (unknown) (no (unknown) (unknown) Neut % (Auto) (units ( unknown) date) 62.8 (50-75) % unknown) (unknown) (no (unknown) (unknown) No Action (units (unkn own) date) unknown) (unknown) (no (unknown) (unknown) No Known Drug (units ( unknown) date) Allergies Allergy unknown) Verified 09/27/21 15:03 (unknown) (no (unknown) (unknown) NyQuil and even (units (unknown) date) smoked cannabis unknown) last night for the 1st time in 30 years. She is (unknown) (no (unknown) (unknown) Oxygen Delivery (units (unknown) date) Method 05/08/22 unknown) 10:37 (unknown) (no (unknown) (unknown) PSYCHIATRIC: No (units (unknown) date) concerning unknown) psychosocial issues. (unknown) (no (unknown) (unknown) Painful (units (unkno wn) date) menstrual periods unknown) (-2017) (unknown) (no (unknown) (unknown) Patient (units (unkno wn) date) Disposition: Home unknown) (unknown) (no (unknown) (unknown) Patient History (units (unknown) date) unknown) (unknown) (no (unknown) (unknown) Patient: (units (unkno wn) date) Alta Betancourt MR#: unknown) [id number] (unknown) (no (unknown) (unknown) Plt Count 310 (units ( unknown) date) (150-400) X103/uL unknown) (unknown) (no (unknown) (unknown) Potassium 4.7 (units ( unknown) date) (3.4-5.1) mmol/L unknown) (unknown) (no (unknown) (unknown) Prescriptions: (units (unknown) date) unknown) (unknown) (no (unknown) (unknown) Previous Rx's (units ( unknown) date) unknown) (unknown) (no (unknown) (unknown) Pulse Oximetry (units (unknown) date) 99 05/08/22 10:37 unknown) (unknown) (no (unknown) (unknown) Pulse Rate 76 (units ( unknown) date) 05/08/22 10:37 unknown) (unknown) (no (unknown) (unknown) RBC 4.59 (units (unkno wn) date) (4.0-5.2) X106/uL unknown) (unknown) (no (unknown) (unknown) RDW 13.9 (units (unkno wn) date) (11.6-14.8) % unknown) (unknown) (no (unknown) (unknown) RESPIRATORY: (units (un known) date) Clear to unknown) auscultation. Breath sounds equal bilaterally. No wheezes, (unknown) (no (unknown) (unknown) RESPIRATORY: (units (u nknown) date) Denies dyspnea, unknown) cough, wheezing, hemoptysis, sputum. (unknown) (no (unknown) (unknown) Referrals: (units (unk nown) date) unknown) (unknown) (no (unknown) (unknown) Related (units (unkno wn) date) Information unknown) (unknown) (no (unknown) (unknown) Respiratory Rate (units (unknown) date) 18 05/08/22 10:37 unknown) (unknown) (no (unknown) (unknown) Result diagrams: (units (unknown) date) unknown) (unknown) (no (unknown) (unknown) Review of (units (unkn own) date) Systems unknown) (unknown) (no (unknown) (unknown) SKIN: Denies (units (u nknown) date) rash, skin unknown) lesions, or other (unknown) (no (unknown) (unknown) SKIN: No rash or (units (unknown) date) erythema of unknown) visible areas (unknown) (no (unknown) (unknown) Signed By: (units (unk nown) date) unknown) (unknown) (no (unknown) (unknown) Smoking Status: (units (unknown) date) Former smoker unknown) (unknown) (no (unknown) (unknown) Social History (units (unknown) date) (Reviewed unknown) 05/08/22 @ 12:33 by Thien Magallanes DO) (unknown) (no (unknown) (unknown) Sodium 139 (units (unk nown) date) (137-145) mmol/L unknown) (unknown) (no (unknown) (unknown) Source: patient (units (unknown) date) unknown) (unknown) (no (unknown) (unknown) Stated (units (unkno wn) date) complaint: unknown) haven't slept in a week sleeping issues since December (unknown) (no (unknown) (unknown) Substance Use (units ( unknown) date) Type: does not unknown) use (unknown) (no (unknown) (unknown) Surgical History (units (unknown) date) (Reviewed unknown) 05/08/22 @ 12:33 by Thien Magallanes DO) (unknown) (no (unknown) (unknown) Temperature 96.9 (units (unknown) date) F L 05/08/22 unknown) 10:37 (unknown) (no (unknown) (unknown) Thyroid nodule (units (unknown) date) (-1997) unknown) (unknown) (no (unknown) (unknown) Time Seen by (units (u nknown) date) Provider: unknown) 05/08/22 11:02 (unknown) (no (unknown) (unknown) Varicose vein of (units (unknown) date) leg unknown) (unknown) (no (unknown) (unknown) Vital Signs (units (un known) date) unknown) (unknown) (no (unknown) (unknown) WBC 5.4 (units (unkno wn) date) (4.5-11.0) unknown) X103/uL (unknown) (no (unknown) (unknown) [Embedded Image (units (unknown) date) Not Available] unknown) (unknown) (no (unknown) (unknown) alcohol intake (units (unknown) date) frequency: a few unknown) times a month (unknown) (no (unknown) (unknown) alcohol intake: (units (unknown) date) current unknown) (unknown) (no (unknown) (unknown) constipation, (units ( unknown) date) melena. unknown) (unknown) (no (unknown) (unknown) dizziness. (units (unk nown) date) unknown) (unknown) (no (unknown) (unknown) fatigued and (units (u nknown) date) exhausted. She unknown) denies any significant stressors at home, change in (unknown) (no (unknown) (unknown) few months. She (units (unknown) date) states that she unknown) has tried everything she can think of regarding (unknown) (no (unknown) (unknown) her sleep (units (unkn own) date) routine including unknown) lack of screens, no caffeine after 10:00 a.m., (unknown) (no (unknown) (unknown) here today (units (unkn own) date) because she unknown) states she is not slept 1 minute for the past week and is (unknown) (no (unknown) (unknown) household (units (unkn own) date) members: spouse unknown) and children (unknown) (no (unknown) (unknown) icterus. No (units (un known) date) injection or unknown) drainage. (unknown) (no (unknown) (unknown) lives (units (unkno wn) date) independently: unknown) Yes (unknown) (no (unknown) (unknown) mild distress. (units (unknown) date) Clearly unknown) frustrated (unknown) (no (unknown) (unknown) post op (units (unkno wn) date) prescription. has unknown) not yet started (unknown) (no (unknown) (unknown) rales, or (units (unkn own) date) rhonchi. unknown) (unknown) (no (unknown) (unknown) seizures, (units (unkn own) date) incoordination. unknown) (unknown) (no (unknown) (unknown) significant (units (un known) date) other and a chief unknown) complaint of difficulty with sleep for the past (unknown) (no (unknown) (unknown) thyroid (pork) (units (unknown) date) 60 mg tablet 120 unknown) mg PO DAILY 08/05/19 09/28/21 (unknown) (no (unknown) (unknown) thyroid (pork) (units (unknown) date) [[place]s Thyroid] unknown) 60 mg tablet (unknown) (no (unknown) (unknown) tonsillar (units (unkn own) date) hypertrophy or unknown) exudate. Airway patent. (unknown) (no (unknown) (unknown) tramadol 50 mg (units (unknown) date) tablet 50 mg PO unknown) Q6H PRN pain #20 tabs 09/24/21 (unknown) (no (unknown) (unknown) tramadol 50 mg (units (unknown) date) tablet unknown) (unknown) (no (unknown) (unknown) various (units (unkno wn) date) [id number] unknown) medications including Benadryl, melatonin, Unisom, (unknown) (no (unknown) (unknown) work patterns, (units (unknown) date) new unknown) [id number] medications or supplements. Result panel 8 (unknown) (no (unknown) (unknown) (no value) (units (unk nown) date) unknown) (unknown) (no (unknown) (unknown) ([place]s Thyroid) (units (unknown) date) unknown) (unknown) (no (unknown) (unknown) *If you do not (units (unknown) date) have a primary unknown) care provider please contact the [facility] (unknown) (no (unknown) (unknown) *Please continue (units (unknown) date) to take your unknown) regular medications as directed. (unknown) (no (unknown) (unknown) *Please follow (units (unknown) date) up with your unknown) primary care provider in 2-3 days, call for an (unknown) (no (unknown) (unknown) *Return to (units (unk nown) date) Emergency unknown) Department if you should have any new, worsening or (unknown) (no (unknown) (unknown) *What to do: (units (u nknown) date) unknown) (unknown) (no (unknown) (unknown) *You have been (units (unknown) date) diagnosed with unknown) [insomnia. Thankfully your history and physical (unknown) (no (unknown) (unknown) 05/08/22 (units (unkno wn) date) 05/08/22 05/08/22 unknown) Range/Units (unknown) (no (unknown) (unknown) 05/08/22 12:40 (units (unknown) date) unknown) (unknown) (no (unknown) (unknown) 12 point review (units (unknown) date) of systems is unknown) negative except for those stated above (unknown) (no (unknown) (unknown) 120 mg PO DAILY (units (unknown) date) unknown) (unknown) (no (unknown) (unknown) 12:40 12:40 (units (un known) date) 12:40 unknown) (unknown) (no (unknown) (unknown) 46-year-old (units (un known) date) female nonsmoker unknown) with history of hypothyroid presents with (unknown) (no (unknown) (unknown) 50 mg PO Q6H PRN (units (unknown) date) (Reason: pain) unknown) Qty: 20 0RF (unknown) (no (unknown) (unknown) 607 (units (unkno wn) date) unknown) (unknown) (no (unknown) (unknown) Abnormal Pap (units (u nknown) date) smear of cervix unknown) () (unknown) (no (unknown) (unknown) Acne () (units (u nknown) date) unknown) (unknown) (no (unknown) (unknown) Activity (units (unkno wn) date) Restrictions/[place] unknown) tional Instructions: (unknown) (no (unknown) (unknown) Age/Sex: 46 / F (units (unknown) date) unknown) (unknown) (no (unknown) (unknown) Allergies (units (unkn own) date) unknown) (unknown) (no (unknown) (unknown) Allergy/AdvReac (units (unknown) date) Type Severity unknown) Reaction Status Date / Time (unknown) (no (unknown) (unknown) Anemia (units (unkno wn) date) unknown) (unknown) (no (unknown) (unknown) Anesthesia (units (unk nown) date) unknown) (unknown) (no (unknown) (unknown) BACK: Nontender (units (unknown) date) without deformity unknown) or crepitance. No flank tenderness. (unknown) (no (unknown) (unknown) BUN 15 (7-17) (units ( unknown) date) mg/dL unknown) (unknown) (no (unknown) (unknown) BUN/Creatinine (units (unknown) date) Ratio 21.4 (6-22) unknown) (unknown) (no (unknown) (unknown) Baso # (Auto) (units ( unknown) date) 100 (0-100) /uL unknown) (unknown) (no (unknown) (unknown) Baso % (Auto) (units ( unknown) date) 1.0 (0-2) % unknown) (unknown) (no (unknown) (unknown) Blood Pressure (units (unknown) date) 117/70 05/08/22 unknown) 10:37 (unknown) (no (unknown) (unknown) CARDIOVASCULAR: (units (unknown) date) Denies chest unknown) pain, palpitations, orthopnea, edema, (unknown) (no (unknown) (unknown) CARDIOVASCULAR: (units (unknown) date) Regular rate and unknown) rhythm without murmurs, gallops, or rubs. (unknown) (no (unknown) (unknown) Calcium 9.1 (units (un known) date) (8.4-10.2) mg/dL unknown) (unknown) (no (unknown) (unknown) Carbon Dioxide (units (unknown) date) 27 (22-32) mmol/L unknown) (unknown) (no (unknown) (unknown) Chicken pox (units (un known) date) () unknown) (unknown) (no (unknown) (unknown) Chief complaint: (units (unknown) date) Medical Clearance unknown) (unknown) (no (unknown) (unknown) Chloride 104 (units (u nknown) date) (98-107) mmol/L unknown) (unknown) (no (unknown) (unknown) Clinical (units (unkno wn) date) Impression: unknown) (unknown) (no (unknown) (unknown) Oscar Yañez, (units (unknown) date) [Primary Care unknown) Provider] (unknown) (no (unknown) (unknown) Creatinine 0.70 (units (unknown) date) (0.52-1.04) mg/dL unknown) (unknown) (no (unknown) (unknown) : 1975 (units (unknown) date) Acct:[id number] unknown) (unknown) (no (unknown) (unknown) DVT (deep venous (units (unknown) date) thrombosis) unknown) () (unknown) (no (unknown) (unknown) Date of Service: (units (unknown) date) 05/08/22 unknown) (unknown) (no (unknown) (unknown) Departure (units (unkn own) date) unknown) (unknown) (no (unknown) (unknown) Discharge Plan (units (unknown) date) unknown) (unknown) (no (unknown) (unknown) ENT: Nose (units (unkn own) date) without bleeding, unknown) purulent drainage. Throat without erythema, (unknown) (no (unknown) (unknown) ER Physician: (units ( unknown) date) Thien Magallanes unknown) D.O. (unknown) (no (unknown) (unknown) EXTREMITIES: No (units (unknown) date) edema or joint unknown) tenderness. (unknown) (no (unknown) (unknown) EYES: Pupils (units (u nknown) date) equal round and unknown) reactive. Extraocular motions intact. No scleral (unknown) (no (unknown) (unknown) Emergency Report (units (unknown) date) unknown) (unknown) (no (unknown) (unknown) Eos # (Auto) 100 (units (unknown) date) (0-450) /uL unknown) (unknown) (no (unknown) (unknown) Eos % (Auto) 1.2 (units (unknown) date) L (2-4) % unknown) (unknown) (no (unknown) (unknown) Estimated GFR > (units (unknown) date) 60 (>60) mL/min unknown) (unknown) (no (unknown) (unknown) Exam Narrative: (units (unknown) date) unknown) (unknown) (no (unknown) (unknown) Exam (units (unkno wn) date) unknown) (unknown) (no (unknown) (unknown) Family History (units (unknown) date) (Reviewed unknown) 05/08/22 @ 12:33 by Thien Magallanes DO) (unknown) (no (unknown) (unknown) Father (units (unknown) date) Congestive heart unknown) failure (unknown) (no (unknown) (unknown) GASTROINTESTINAL (units (unknown) date) : Abdomen soft, unknown) non-tender, nondistended. (unknown) (no (unknown) (unknown) GASTROINTESTINAL (units (unknown) date) : Denies nausea, unknown) vomiting, abdominal pain, diarrhea, (unknown) (no (unknown) (unknown) GENERAL: Denies (units (unknown) date) chills, fatigue, unknown) malaise, fever, sweats. (unknown) (no (unknown) (unknown) GENERAL: [46] (units ( unknown) date) year old patient unknown) appears stated age. Well-developed patient, in (unknown) (no (unknown) (unknown) : Denies (units (unk nown) date) dysuria, unknown) frequency, incontinence, hematuria, urinary retention. (unknown) (no (unknown) (unknown) General (units (unkno wn) date) unknown) (unknown) (no (unknown) (unknown) Glucose 78 (units (unk nown) date) (70-100) mg/dL unknown) (unknown) (no (unknown) (unknown) Graves disease (units (unknown) date) (-1994) unknown) (unknown) (no (unknown) (unknown) HEAD: (units (unkno wn) date) Atraumatic. unknown) Normocephalic. (unknown) (no (unknown) (unknown) HEENT: Denies (units ( unknown) date) sinus pain, ear unknown) pain, sore throat, difficulty swallowing, (unknown) (no (unknown) (unknown) HPI - Medical (units ( unknown) date) Clearance unknown) (unknown) (no (unknown) (unknown) HPI Narrative: (units (unknown) date) unknown) (unknown) (no (unknown) (unknown) Hct 38.9 (36-46) (units (unknown) date) % unknown) (unknown) (no (unknown) (unknown) Herpes (-1990) (units (unknown) date) unknown) (unknown) (no (unknown) (unknown) Hgb 13.1 (units (unkno wn) date) (12.0-16.0) g/dL unknown) (unknown) (no (unknown) (unknown) History of (units (unk nown) date) Present Illness unknown) (unknown) (no (unknown) (unknown) History of (units (unk nown) date) section unknown) () (unknown) (no (unknown) (unknown) History of (units (unk nown) date) section unknown) () (unknown) (no (unknown) (unknown) History of (units (unk nown) date) surgery (-2017) unknown) (unknown) (no (unknown) (unknown) History of (units (unk nown) date) thyroid surgery unknown) () (unknown) (no (unknown) (unknown) History of tubal (units (unknown) date) ligation unknown) () (unknown) (no (unknown) (unknown) Home Medications (units (unknown) date) unknown) (unknown) (no (unknown) (unknown) Initial Vital (units ( unknown) date) Signs unknown) (unknown) (no (unknown) (unknown) Initial Vital (units ( unknown) date) Signs: unknown) (unknown) (no (unknown) (unknown) Insomnia (units (unkno wn) date) unknown) (unknown) (no (unknown) (unknown) Irregular (units (unkn own) date) menstrual cycle unknown) (unknown) (no (unknown) (unknown) [facility] (units (unknown) date) [address] unknown) [place] [address] (unknown) (no (unknown) (unknown) Lab Data (units (unkno wn) date) unknown) (unknown) (no (unknown) (unknown) Lab Results (units (un known) date) unknown) (unknown) (no (unknown) (unknown) Label Comments: (units (unknown) date) unknown) (unknown) (no (unknown) (unknown) Labs: (units (unkno wn) date) unknown) (unknown) (no (unknown) (unknown) Lymph # (Auto) (units (unknown) date) 1600 (4973-5650) unknown) /uL (unknown) (no (unknown) (unknown) Lymph % (Auto) (units (unknown) date) 28.9 (25-40) % unknown) (unknown) (no (unknown) (unknown) MCH 28.4 (26-34) (units (unknown) date) PG unknown) (unknown) (no (unknown) (unknown) MCHC 33.6 (units (unkn own) date) (30-36) % unknown) (unknown) (no (unknown) (unknown) MCV 84.7 (units (unkno wn) date) (80-100) fL unknown) (unknown) (no (unknown) (unknown) MDM - Medical (units ( unknown) date) Clearance unknown) (unknown) (no (unknown) (unknown) MUSCULOSKELETAL: (units (unknown) date) denies weakness, unknown) joint pain, or bony pain (unknown) (no (unknown) (unknown) Medical History (units (unknown) date) (Reviewed unknown) 05/08/22 @ 12:33 by Thien Magallanes DO) (unknown) (no (unknown) (unknown) Medication (units (unk nown) date) Instructions unknown) Recorded Confirmed (unknown) (no (unknown) (unknown) Medication (units (unk nown) date) Instructions unknown) Recorded (unknown) (no (unknown) (unknown) Mode of arrival: (units (unknown) date) Ambulatory unknown) (unknown) (no (unknown) (unknown) [place] # (Auto) (units ( unknown) date) 300 (0-900) /uL unknown) (unknown) (no (unknown) (unknown) [place] % (Auto) (units ( unknown) date) 6.1 (3-14) % unknown) (unknown) (no (unknown) (unknown) Mother (units (unkno wn) date) Hyperlipidemia unknown) (unknown) (no (unknown) (unknown) NECK: Trachea (units ( unknown) date) midline. Non unknown) tender (unknown) (no (unknown) (unknown) NEURO: AOx3. (units (u nknown) date) unknown) (unknown) (no (unknown) (unknown) NEUROLOGIC: (units (un known) date) Denies weakness, unknown) headache, numbness, change in speech, confusion, (unknown) (no (unknown) (unknown) Narrative (units (unkn own) date) unknown) (unknown) (no (unknown) (unknown) Narrative: (units (unk nown) date) unknown) (unknown) (no (unknown) (unknown) Neut # (Auto) (units ( unknown) date) 3400 (6402-4836) unknown) /uL (unknown) (no (unknown) (unknown) Neut % (Auto) (units ( unknown) date) 62.8 (50-75) % unknown) (unknown) (no (unknown) (unknown) No Action (units (unkn own) date) unknown) (unknown) (no (unknown) (unknown) No Known Drug (units ( unknown) date) Allergies Allergy unknown) Verified 09/27/21 15:03 (unknown) (no (unknown) (unknown) NyQuil and even (units (unknown) date) smoked cannabis unknown) last night for the 1st time in 30 years. She is (unknown) (no (unknown) (unknown) Oxygen Delivery (units (unknown) date) Method 05/08/22 unknown) 10:37 (unknown) (no (unknown) (unknown) PSYCHIATRIC: No (units (unknown) date) concerning unknown) psychosocial issues. (unknown) (no (unknown) (unknown) Painful (units (unkno wn) date) menstrual periods unknown) (-2017) (unknown) (no (unknown) (unknown) Patient (units (unkno wn) date) Disposition: Home unknown) (unknown) (no (unknown) (unknown) Patient History (units (unknown) date) unknown) (unknown) (no (unknown) (unknown) Patient: (units (unkno wn) date) Alta Betancourt MR#: unknown) [id number] (unknown) (no (unknown) (unknown) Plt Count 310 (units ( unknown) date) (150-400) X103/uL unknown) (unknown) (no (unknown) (unknown) Potassium 4.7 (units ( unknown) date) (3.4-5.1) mmol/L unknown) (unknown) (no (unknown) (unknown) Prescriptions: (units (unknown) date) unknown) (unknown) (no (unknown) (unknown) Previous Rx's (units ( unknown) date) unknown) (unknown) (no (unknown) (unknown) Pulse Oximetry (units (unknown) date) 99 05/08/22 10:37 unknown) (unknown) (no (unknown) (unknown) Pulse Rate 76 (units ( unknown) date) 05/08/22 10:37 unknown) (unknown) (no (unknown) (unknown) RBC 4.59 (units (unkno wn) date) (4.0-5.2) X106/uL unknown) (unknown) (no (unknown) (unknown) RDW 13.9 (units (unkno wn) date) (11.6-14.8) % unknown) (unknown) (no (unknown) (unknown) RESPIRATORY: (units (un known) date) Clear to unknown) auscultation. Breath sounds equal bilaterally. No wheezes, (unknown) (no (unknown) (unknown) RESPIRATORY: (units (u nknown) date) Denies dyspnea, unknown) cough, wheezing, hemoptysis, sputum. (unknown) (no (unknown) (unknown) Referrals: (units (unk nown) date) unknown) (unknown) (no (unknown) (unknown) Related (units (unkno wn) date) Information unknown) (unknown) (no (unknown) (unknown) Resource line at (units (unknown) date) [phone]. unknown) They will ask some questions about your medical (unknown) (no (unknown) (unknown) Respiratory Rate (units (unknown) date) 18 05/08/22 10:37 unknown) (unknown) (no (unknown) (unknown) Result diagrams: (units (unknown) date) unknown) (unknown) (no (unknown) (unknown) Review of (units (unkn own) date) Systems unknown) (unknown) (no (unknown) (unknown) SKIN: Denies (units (u nknown) date) rash, skin unknown) lesions, or other (unknown) (no (unknown) (unknown) SKIN: No rash or (units (unknown) date) erythema of unknown) visible areas (unknown) (no (unknown) (unknown) Signed By: (units (unk nown) date) unknown) (unknown) (no (unknown) (unknown) Smoking Status: (units (unknown) date) Former smoker unknown) (unknown) (no (unknown) (unknown) Social History (units (unknown) date) (Reviewed unknown) 05/08/22 @ 12:33 by Thien Magallanes DO) (unknown) (no (unknown) (unknown) Sodium 139 (units (unk nown) date) (137-145) mmol/L unknown) (unknown) (no (unknown) (unknown) Source: patient (units (unknown) date) unknown) (unknown) (no (unknown) (unknown) Stated (units (unkno wn) date) complaint: unknown) haven't slept in a week sleeping issues since December (unknown) (no (unknown) (unknown) Substance Use (units ( unknown) date) Type: does not unknown) use (unknown) (no (unknown) (unknown) Surgical History (units (unknown) date) (Reviewed unknown) 05/08/22 @ 12:33 by Thien Magallanes DO) (unknown) (no (unknown) (unknown) TSH 2.30 (units (unkno wn) date) (0.47-4.68) unknown) uIU/mL (unknown) (no (unknown) (unknown) Temperature 96.9 (units (unknown) date) F L 05/08/22 unknown) 10:37 (unknown) (no (unknown) (unknown) Thyroid nodule (units (unknown) date) (-1997) unknown) (unknown) (no (unknown) (unknown) Time Seen by (units (u nknown) date) Provider: unknown) 05/08/22 11:02 (unknown) (no (unknown) (unknown) Varicose vein of (units (unknown) date) leg unknown) (unknown) (no (unknown) (unknown) Vital Signs (units (un known) date) unknown) (unknown) (no (unknown) (unknown) WBC 5.4 (units (unkno wn) date) (4.5-11.0) unknown) X103/uL (unknown) (no (unknown) (unknown) [ ] New (units (unkno wn) date) medication unknown) prescriptions sent to your pharmacy: [ ] (unknown) (no (unknown) (unknown) [ ] New (units (unkno wn) date) medication unknown) written as a paper prescription (unknown) (no (unknown) (unknown) [ ] No new (units (unk nown) date) medications given unknown) (unknown) (no (unknown) (unknown) [Embedded Image (units (unknown) date) Not Available] unknown) (unknown) (no (unknown) (unknown) alcohol intake (units (unknown) date) frequency: a few unknown) times a month (unknown) (no (unknown) (unknown) alcohol intake: (units (unknown) date) current unknown) (unknown) (no (unknown) (unknown) appointment. Let (units (unknown) date) them know you unknown) were seen in the Emergency Department and that we (unknown) (no (unknown) (unknown) ask that you be (units (unknown) date) seen in follow unknown) up. We will electronically transmit a record of (unknown) (no (unknown) (unknown) concerning (units (unk nown) date) symptoms, such as unknown) [fever greater than 101 F, shaking chills, (unknown) (no (unknown) (unknown) constipation, (units ( unknown) date) melena. unknown) (unknown) (no (unknown) (unknown) dizziness. (units (unk nown) date) unknown) (unknown) (no (unknown) (unknown) exam are very (units ( unknown) date) reassuring and unknown) there are no significant lab abnormalities.] (unknown) (no (unknown) (unknown) fatigued and (units (u nknown) date) exhausted. She unknown) denies any significant stressors at home, change in (unknown) (no (unknown) (unknown) few months. She (units (unknown) date) states that she unknown) has tried everything she can think of regarding (unknown) (no (unknown) (unknown) her sleep (units (unkn own) date) routine including unknown) lack of screens, no caffeine after 10:00 a.m., (unknown) (no (unknown) (unknown) here today (units (unkn own) date) because she unknown) states she is not slept 1 minute for the past week and is (unknown) (no (unknown) (unknown) history and help (units (unknown) date) get you set up unknown) with a doctor in the community. (unknown) (no (unknown) (unknown) household (units (unkn own) date) members: spouse unknown) and children (unknown) (no (unknown) (unknown) icterus. No (units (un known) date) injection or unknown) drainage. (unknown) (no (unknown) (unknown) lives (units (unkno wn) date) independently: unknown) Yes (unknown) (no (unknown) (unknown) mild distress. (units (unknown) date) Clearly unknown) frustrated (unknown) (no (unknown) (unknown) post op (units (unkno wn) date) prescription. has unknown) not yet started (unknown) (no (unknown) (unknown) rales, or (units (unkn own) date) rhonchi. unknown) (unknown) (no (unknown) (unknown) seizures, (units (unkn own) date) incoordination. unknown) (unknown) (no (unknown) (unknown) significant (units (un known) date) other and a chief unknown) complaint of difficulty with sleep for the past (unknown) (no (unknown) (unknown) thyroid (pork) (units (unknown) date) 60 mg tablet 120 unknown) mg PO DAILY 08/05/19 09/28/21 (unknown) (no (unknown) (unknown) thyroid (pork) (units (unknown) date) [[facility] Thyroid] unknown) 60 mg tablet (unknown) (no (unknown) (unknown) today's note if (units (unknown) date) your PCP is in unknown) our system (unknown) (no (unknown) (unknown) tonsillar (units (unkn own) date) hypertrophy or unknown) exudate. Airway patent. (unknown) (no (unknown) (unknown) tramadol 50 mg (units (unknown) date) tablet 50 mg PO unknown) Q6H PRN pain #20 tabs 09/24/21 (unknown) (no (unknown) (unknown) tramadol 50 mg (units (unknown) date) tablet unknown) (unknown) (no (unknown) (unknown) various (units (unkno wn) date) [id number] unknown) medications including Benadryl, melatonin, Unisom, (unknown) (no (unknown) (unknown) work patterns, (units (unknown) date) new unknown) [id number] medications or supplements. (unknown) (no (unknown) (unknown) worsening pain, (units (unknown) date) persistent unknown) vomiting or other bothersome symptoms] Result panel 9 (unknown) (no (unknown) (unknown) (no value) (units (unk nown) date) unknown) (unknown) (no (unknown) (unknown) <Electronically (units (unknown) date) signed by Thien unknown) Rylee Magallanes> (unknown) (no (unknown) (unknown) ([place]s Thyroid) (units (unknown) date) unknown) (unknown) (no (unknown) (unknown) *If you do not (units (unknown) date) have a primary unknown) care provider please contact the [facility] (unknown) (no (unknown) (unknown) *Please continue (units (unknown) date) to take your unknown) regular medications as directed. (unknown) (no (unknown) (unknown) *Please follow (units (unknown) date) up with your unknown) primary care provider in 2-3 days, call for an (unknown) (no (unknown) (unknown) *Return to (units (unk nown) date) Emergency unknown) Department if you should have any new, worsening or (unknown) (no (unknown) (unknown) *What to do: (units (u nknown) date) unknown) (unknown) (no (unknown) (unknown) *You have been (units (unknown) date) diagnosed with unknown) [insomnia. Thankfully your history and physical (unknown) (no (unknown) (unknown) 05/08/22 (units (unkno wn) date) 05/08/22 05/08/22 unknown) Range/Units (unknown) (no (unknown) (unknown) 05/08/22 12:40 (units (unknown) date) unknown) (unknown) (no (unknown) (unknown) 05/08/22 1409 (units ( unknown) date) unknown) (unknown) (no (unknown) (unknown) 12 point review (units (unknown) date) of systems is unknown) negative except for those stated above (unknown) (no (unknown) (unknown) 120 mg PO DAILY (units (unknown) date) unknown) (unknown) (no (unknown) (unknown) 12:40 12:40 (units (un known) date) 12:40 unknown) (unknown) (no (unknown) (unknown) 46-year-old (units (un known) date) female nonsmoker unknown) with history of hypothyroid presents with (unknown) (no (unknown) (unknown) 5 mg PO BEDTIME (units (unknown) date) PRN (Reason: unknown) insomnia) Qty: 20 0RF (unknown) (no (unknown) (unknown) 50 mg PO Q6H PRN (units (unknown) date) (Reason: pain) unknown) Qty: 20 0RF (unknown) (no (unknown) (unknown) 607 (units (unkno wn) date) unknown) (unknown) (no (unknown) (unknown) Abnormal Pap (units (u nknown) date) smear of cervix unknown) () (unknown) (no (unknown) (unknown) Acne () (units (u nknown) date) unknown) (unknown) (no (unknown) (unknown) Activity (units (unkno wn) date) Restrictions/Dejan unknown) tional Instructions: (unknown) (no (unknown) (unknown) Age/Sex: 46 / F (units (unknown) date) unknown) (unknown) (no (unknown) (unknown) Allergies (units (unkn own) date) unknown) (unknown) (no (unknown) (unknown) Allergy/AdvReac (units (unknown) date) Type Severity unknown) Reaction Status Date / Time (unknown) (no (unknown) (unknown) Anemia (units (unkno wn) date) unknown) (unknown) (no (unknown) (unknown) Anesthesia (units (unk nown) date) unknown) (unknown) (no (unknown) (unknown) BACK: Nontender (units (unknown) date) without deformity unknown) or crepitance. No flank tenderness. (unknown) (no (unknown) (unknown) BUN 15 (7-17) (units ( unknown) date) mg/dL unknown) (unknown) (no (unknown) (unknown) BUN/Creatinine (units (unknown) date) Ratio 21.4 (6-22) unknown) (unknown) (no (unknown) (unknown) Baso # (Auto) (units ( unknown) date) 100 (0-100) /uL unknown) (unknown) (no (unknown) (unknown) Baso % (Auto) (units ( unknown) date) 1.0 (0-2) % unknown) (unknown) (no (unknown) (unknown) Blood Pressure (units (unknown) date) 117/70 05/08/22 unknown) 10:37 (unknown) (no (unknown) (unknown) CARDIOVASCULAR: (units (unknown) date) Denies chest unknown) pain, palpitations, orthopnea, edema, (unknown) (no (unknown) (unknown) CARDIOVASCULAR: (units (unknown) date) Regular rate and unknown) rhythm without murmurs, gallops, or rubs. (unknown) (no (unknown) (unknown) Calcium 9.1 (units (un known) date) (8.4-10.2) mg/dL unknown) (unknown) (no (unknown) (unknown) Carbon Dioxide (units (unknown) date) 27 (22-32) mmol/L unknown) (unknown) (no (unknown) (unknown) Chicken pox (units (un known) date) () unknown) (unknown) (no (unknown) (unknown) Chief complaint: (units (unknown) date) Medical Clearance unknown) (unknown) (no (unknown) (unknown) Chloride 104 (units (u nknown) date) (98-107) mmol/L unknown) (unknown) (no (unknown) (unknown) Clinical (units (unkno wn) date) Impression: unknown) (unknown) (no (unknown) (unknown) Oscar Yañez, (units (unknown) date) [Primary Care unknown) Provider] (unknown) (no (unknown) (unknown) Creatinine 0.70 (units (unknown) date) (0.52-1.04) mg/dL unknown) (unknown) (no (unknown) (unknown) : 1975 (units (unknown) date) Acct:[id number] unknown) (unknown) (no (unknown) (unknown) DVT (deep venous (units (unknown) date) thrombosis) unknown) (-2017) (unknown) (no (unknown) (unknown) Date of Service: (units (unknown) date) 05/08/22 unknown) (unknown) (no (unknown) (unknown) Departure (units (unkn own) date) unknown) (unknown) (no (unknown) (unknown) Discharge Plan (units (unknown) date) unknown) (unknown) (no (unknown) (unknown) ENT: Nose (units (unkn own) date) without bleeding, unknown) purulent drainage. Throat without erythema, (unknown) (no (unknown) (unknown) ER Physician: (units ( unknown) date) Thien Magallanes unknown) D.O. (unknown) (no (unknown) (unknown) EXTREMITIES: No (units (unknown) date) edema or joint unknown) tenderness. (unknown) (no (unknown) (unknown) EYES: Pupils (units (u nknown) date) equal round and unknown) reactive. Extraocular motions intact. No scleral (unknown) (no (unknown) (unknown) Emergency Report (units (unknown) date) unknown) (unknown) (no (unknown) (unknown) Eos # (Auto) 100 (units (unknown) date) (0-450) /uL unknown) (unknown) (no (unknown) (unknown) Eos % (Auto) 1.2 (units (unknown) date) L (2-4) % unknown) (unknown) (no (unknown) (unknown) Estimated GFR > (units (unknown) date) 60 (>60) mL/min unknown) (unknown) (no (unknown) (unknown) Exam Narrative: (units (unknown) date) unknown) (unknown) (no (unknown) (unknown) Exam (units (unkno wn) date) unknown) (unknown) (no (unknown) (unknown) Family History (units (unknown) date) (Reviewed unknown) 05/08/22 @ 12:33 by Thien Magallanes DO) (unknown) (no (unknown) (unknown) Father (units (unknown) date) Congestive heart unknown) failure (unknown) (no (unknown) (unknown) GASTROINTESTINAL (units (unknown) date) : Abdomen soft, unknown) non-tender, nondistended. (unknown) (no (unknown) (unknown) GASTROINTESTINAL (units (unknown) date) : Denies nausea, unknown) vomiting, abdominal pain, diarrhea, (unknown) (no (unknown) (unknown) GENERAL: Denies (units (unknown) date) chills, fatigue, unknown) malaise, fever, sweats. (unknown) (no (unknown) (unknown) GENERAL: [46] (units ( unknown) date) year old patient unknown) appears stated age. Well-developed patient, in (unknown) (no (unknown) (unknown) : Denies (units (k ) date) dysuria, unknown) frequency, incontinence, hematuria, urinary retention. (unknown) (no (unknown) (unknown) General (units (o wn) date) unknown) (unknown) (no (unknown) (unknown) Glucose 78 (units () ) (70-100) mg/dL unknown) (unknown) (no (unknown) (unknown) Graves disease (units (unknown) date) (-1994) unknown) (unknown) (no (unknown) (unknown) HEAD: (units () date) Atraumatic. unknown) Normocephalic. (unknown) (no (unknown) (unknown) HEENT: Denies (units ( unknown) date) sinus pain, ear unknown) pain, sore throat, difficulty swallowing, (unknown) (no (unknown) (unknown) HPI - Medical (units ( unknown) date) Clearance unknown) (unknown) (no (unknown) (unknown) HPI Narrative: (units (unknown) date) unknown) (unknown) (no (unknown) (unknown) Hct 38.9 (36-46) (units (unknown) date) % unknown) (unknown) (no (unknown) (unknown) Herpes (-1990) (units (unknown) date) unknown) (unknown) (no (unknown) (unknown) Hgb 13.1 (units (o wn) date) (12.0-16.0) g/dL unknown) (unknown) (no (unknown) (unknown) History of (units (unk nown) date) Present Illness unknown) (unknown) (no (unknown) (unknown) History of (units (unk nown) date) section unknown) () (unknown) (no (unknown) (unknown) History of (units (unk nown) date) section unknown) () (unknown) (no (unknown) (unknown) History of (units (unk nown) date) surgery (-2017) unknown) (unknown) (no (unknown) (unknown) History of (units (unk nown) date) thyroid surgery unknown) () (unknown) (no (unknown) (unknown) History of tubal (units (unknown) date) ligation unknown) () (unknown) (no (unknown) (unknown) Home Medications (units (unknown) date) unknown) (unknown) (no (unknown) (unknown) Initial Vital (units ( unknown) date) Signs unknown) (unknown) (no (unknown) (unknown) Initial Vital (units ( unknown) date) Signs: unknown) (unknown) (no (unknown) (unknown) Insomnia (units (unkno wn) date) unknown) (unknown) (no (unknown) (unknown) Irregular (units (unkn own) date) menstrual cycle unknown) (unknown) (no (unknown) (unknown) [facility] (units (unknown) date) [address] unknown) [place] [address] (unknown) (no (unknown) (unknown) Lab Data (units (unkno wn) date) unknown) (unknown) (no (unknown) (unknown) Lab Results (units (un known) date) unknown) (unknown) (no (unknown) (unknown) Label Comments: (units (unknown) date) unknown) (unknown) (no (unknown) (unknown) Labs: (units (unkno wn) date) unknown) (unknown) (no (unknown) (unknown) Lymph # (Auto) (units (unknown) date) 1600 (7598-9675) unknown) /uL (unknown) (no (unknown) (unknown) Lymph % (Auto) (units (unknown) date) 28.9 (25-40) % unknown) (unknown) (no (unknown) (unknown) MCH 28.4 (26-34) (units (unknown) date) PG unknown) (unknown) (no (unknown) (unknown) MCHC 33.6 (units (unkn own) date) (30-36) % unknown) (unknown) (no (unknown) (unknown) MCV 84.7 (units (unkno wn) date) (80-100) fL unknown) (unknown) (no (unknown) (unknown) MDM - Medical (units ( unknown) date) Clearance unknown) (unknown) (no (unknown) (unknown) MUSCULOSKELETAL: (units (unknown) date) denies weakness, unknown) joint pain, or bony pain (unknown) (no (unknown) (unknown) Medical History (units (unknown) date) (Reviewed unknown) 05/08/22 @ 12:33 by Thien Magallanes DO) (unknown) (no (unknown) (unknown) Medication (units (unk nown) date) Instructions unknown) Recorded Confirmed (unknown) (no (unknown) (unknown) Medication (units (unk nown) date) Instructions unknown) Recorded (unknown) (no (unknown) (unknown) Mode of arrival: (units (unknown) date) Ambulatory unknown) (unknown) (no (unknown) (unknown) [place] # (Auto) (units ( unknown) date) 300 (0-900) /uL unknown) (unknown) (no (unknown) (unknown) [place] % (Auto) (units ( unknown) date) 6.1 (3-14) % unknown) (unknown) (no (unknown) (unknown) Mother (units (unkno wn) date) Hyperlipidemia unknown) (unknown) (no (unknown) (unknown) NECK: Trachea (units ( unknown) date) midline. Non unknown) tender (unknown) (no (unknown) (unknown) NEURO: AOx3. (units (u nknown) date) unknown) (unknown) (no (unknown) (unknown) NEUROLOGIC: (units (un known) date) Denies weakness, unknown) headache, numbness, change in speech, confusion, (unknown) (no (unknown) (unknown) Narrative (units (unkn own) date) unknown) (unknown) (no (unknown) (unknown) Narrative: (units (unk nown) date) unknown) (unknown) (no (unknown) (unknown) Neut # (Auto) (units ( unknown) date) 3400 (1756-6655) unknown) /uL (unknown) (no (unknown) (unknown) Neut % (Auto) (units ( unknown) date) 62.8 (50-75) % unknown) (unknown) (no (unknown) (unknown) New (units (unkno wn) date) unknown) (unknown) (no (unknown) (unknown) No Action (units (unkn own) date) unknown) (unknown) (no (unknown) (unknown) No Known Drug (units ( unknown) date) Allergies Allergy unknown) Verified 09/27/21 15:03 (unknown) (no (unknown) (unknown) NyQuil and even (units (unknown) date) smoked cannabis unknown) last night for the 1st time in 30 years. She is (unknown) (no (unknown) (unknown) Oxygen Delivery (units (unknown) date) Method 05/08/22 unknown) 10:37 (unknown) (no (unknown) (unknown) PSYCHIATRIC: No (units (unknown) date) concerning unknown) psychosocial issues. (unknown) (no (unknown) (unknown) Painful (units (unkno wn) date) menstrual periods unknown) (-2017) (unknown) (no (unknown) (unknown) Patient (units (unkno wn) date) Disposition: Home unknown) (unknown) (no (unknown) (unknown) Patient History (units (unknown) date) unknown) (unknown) (no (unknown) (unknown) Patient: (units (unkno wn) date) Alta Betancourt MR#: unknown) [id number] (unknown) (no (unknown) (unknown) Plt Count 310 (units ( unknown) date) (150-400) X103/uL unknown) (unknown) (no (unknown) (unknown) Potassium 4.7 (units ( unknown) date) (3.4-5.1) mmol/L unknown) (unknown) (no (unknown) (unknown) Prescriptions: (units (unknown) date) unknown) (unknown) (no (unknown) (unknown) Previous Rx's (units ( unknown) date) unknown) (unknown) (no (unknown) (unknown) Pulse Oximetry (units (unknown) date) 99 05/08/22 10:37 unknown) (unknown) (no (unknown) (unknown) Pulse Rate 76 (units ( unknown) date) 05/08/22 10:37 unknown) (unknown) (no (unknown) (unknown) RBC 4.59 (units (unkno wn) date) (4.0-5.2) X106/uL unknown) (unknown) (no (unknown) (unknown) RDW 13.9 (units (unkno wn) date) (11.6-14.8) % unknown) (unknown) (no (unknown) (unknown) RESPIRATORY: (units (un known) date) Clear to unknown) auscultation. Breath sounds equal bilaterally. No wheezes, (unknown) (no (unknown) (unknown) RESPIRATORY: (units (u nknown) date) Denies dyspnea, unknown) cough, wheezing, hemoptysis, sputum. (unknown) (no (unknown) (unknown) Referrals: (units (unk nown) date) unknown) (unknown) (no (unknown) (unknown) Related (units (unkno wn) date) Information unknown) (unknown) (no (unknown) (unknown) Resource line at (units (unknown) date) [phone]. unknown) They will ask some questions about your medical (unknown) (no (unknown) (unknown) Respiratory Rate (units (unknown) date) 18 05/08/22 10:37 unknown) (unknown) (no (unknown) (unknown) Result diagrams: (units (unknown) date) unknown) (unknown) (no (unknown) (unknown) Review of (units (unkn own) date) Systems unknown) (unknown) (no (unknown) (unknown) SKIN: Denies (units (u nknown) date) rash, skin unknown) lesions, or other (unknown) (no (unknown) (unknown) SKIN: No rash or (units (unknown) date) erythema of unknown) visible areas (unknown) (no (unknown) (unknown) Signed By: (units (unk nown) date) unknown) (unknown) (no (unknown) (unknown) Smoking Status: (units (unknown) date) Former smoker unknown) (unknown) (no (unknown) (unknown) Social History (units (unknown) date) (Reviewed unknown) 05/08/22 @ 12:33 by Thien Magallanes DO) (unknown) (no (unknown) (unknown) Sodium 139 (units (unk nown) date) (137-145) mmol/L unknown) (unknown) (no (unknown) (unknown) Source: patient (units (unknown) date) unknown) (unknown) (no (unknown) (unknown) Stated (units (unkno wn) date) complaint: unknown) haven't slept in a week sleeping issues since December (unknown) (no (unknown) (unknown) Substance Use (units ( unknown) date) Type: does not unknown) use (unknown) (no (unknown) (unknown) Surgical History (units (unknown) date) (Reviewed unknown) 05/08/22 @ 12:33 by Thien Magallanes DO) (unknown) (no (unknown) (unknown) TSH 2.30 (units (unkno wn) date) (0.47-4.68) unknown) uIU/mL (unknown) (no (unknown) (unknown) Temperature 96.9 (units (unknown) date) F L 05/08/22 unknown) 10:37 (unknown) (no (unknown) (unknown) Thyroid nodule (units (unknown) date) (-1997) unknown) (unknown) (no (unknown) (unknown) Time Seen by (units (u nknown) date) Provider: unknown) 05/08/22 11:02 (unknown) (no (unknown) (unknown) Varicose vein of (units (unknown) date) leg unknown) (unknown) (no (unknown) (unknown) Vital Signs (units (un known) date) unknown) (unknown) (no (unknown) (unknown) WBC 5.4 (units (unkno wn) date) (4.5-11.0) unknown) X103/uL (unknown) (no (unknown) (unknown) [ ] New (units (unkno wn) date) medication unknown) written as a paper prescription (unknown) (no (unknown) (unknown) [ ] No new (units (unk nown) date) medications given unknown) (unknown) (no (unknown) (unknown) [Embedded Image (units (unknown) date) Not Available] unknown) (unknown) (no (unknown) (unknown) [x ] New (units (unkno wn) date) medication unknown) prescriptions sent to your pharmacy: [[facility] ] (unknown) (no (unknown) (unknown) alcohol intake (units (unknown) date) frequency: a few unknown) times a month (unknown) (no (unknown) (unknown) alcohol intake: (units (unknown) date) current unknown) (unknown) (no (unknown) (unknown) appointment. Let (units (unknown) date) them know you unknown) were seen in the Emergency Department and that we (unknown) (no (unknown) (unknown) ask that you be (units (unknown) date) seen in follow unknown) up. We will electronically transmit a record of (unknown) (no (unknown) (unknown) concerning (units (unk nown) date) symptoms, such as unknown) [fever greater than 101 F, shaking chills, (unknown) (no (unknown) (unknown) constipation, (units ( unknown) date) melena. unknown) (unknown) (no (unknown) (unknown) dizziness. (units (unk nown) date) unknown) (unknown) (no (unknown) (unknown) exam are very (units ( unknown) date) reassuring and unknown) there are no significant lab abnormalities.] (unknown) (no (unknown) (unknown) fatigued and (units (u nknown) date) exhausted. She unknown) denies any significant stressors at home, change in (unknown) (no (unknown) (unknown) few months. She (units (unknown) date) states that she unknown) has tried everything she can think of regarding (unknown) (no (unknown) (unknown) her sleep (units (unkn own) date) routine including unknown) lack of screens, no caffeine after 10:00 a.m., (unknown) (no (unknown) (unknown) here today (units (unkn own) date) because she unknown) states she is not slept 1 minute for the past week and is (unknown) (no (unknown) (unknown) history and help (units (unknown) date) get you set up unknown) with a doctor in the community. (unknown) (no (unknown) (unknown) household (units (unkn own) date) members: spouse unknown) and children (unknown) (no (unknown) (unknown) icterus. No (units (un known) date) injection or unknown) drainage. (unknown) (no (unknown) (unknown) lives (units (unkno wn) date) independently: unknown) Yes (unknown) (no (unknown) (unknown) mild distress. (units (unknown) date) Clearly unknown) frustrated (unknown) (no (unknown) (unknown) post op (units (unkno wn) date) prescription. has unknown) not yet started (unknown) (no (unknown) (unknown) rales, or (units (unkn own) date) rhonchi. unknown) (unknown) (no (unknown) (unknown) seizures, (units (unkn own) date) incoordination. unknown) (unknown) (no (unknown) (unknown) significant (units (un known) date) other and a chief unknown) complaint of difficulty with sleep for the past (unknown) (no (unknown) (unknown) tabs (units (unkno wn) date) unknown) (unknown) (no (unknown) (unknown) thyroid (pork) (units (unknown) date) 60 mg tablet 120 unknown) mg PO DAILY 08/05/19 09/28/21 (unknown) (no (unknown) (unknown) thyroid (pork) (units (unknown) date) [[facility] Thyroid] unknown) 60 mg tablet (unknown) (no (unknown) (unknown) today's note if (units (unknown) date) your PCP is in unknown) our system (unknown) (no (unknown) (unknown) tonsillar (units (unkn own) date) hypertrophy or unknown) exudate. Airway patent. (unknown) (no (unknown) (unknown) tramadol 50 mg (units (unknown) date) tablet 50 mg PO unknown) Q6H PRN pain #20 tabs 09/24/21 (unknown) (no (unknown) (unknown) tramadol 50 mg (units (unknown) date) tablet unknown) (unknown) (no (unknown) (unknown) various (units (unkno wn) date) [id number]-aykteyh unknown) medications including Benadryl, melatonin, Unisom, (unknown) (no (unknown) (unknown) work patterns, (units (unknown) date) new unknown) xnmu-wia-brcnmmq medications or supplements. (unknown) (no (unknown) (unknown) worsening pain, (units (unknown) date) persistent unknown) vomiting or other bothersome symptoms] (unknown) (no (unknown) (unknown) zolpidem 5 mg (units ( unknown) date) tablet (Ambien) 5 unknown) mg PO BEDTIME PRN insomnia #20 05/08/22 (unknown) (no (unknown) (unknown) zolpidem (units (unkno wn) date) [Ambien] 5 mg unknown) tablet Social History No information. Vital Signs No information.
--- NOTE | 2022-05-11 02:11 | ED Physician Documentation ---
History of Present Illness - Stated complaint Stated Complaint: ANXIETY/NOT SLEEPING - Chief complaint Chief Complaint: General - History obtained from History obtained from: Patient - Additonal information Additional information: 46yF p/w insomnia for the past week, not improving with ambien prescribed a couple days ago in clinic. patient states she is unable to initiate sleep and also once asleep she wakes regularly. this is completely new and she does not know of any triggers except that she recently has undergone menopause. thyroid studies and other basic labwork have already been done and uncovered no cause for her insomnia. denies active SI or HI, but does endorse visual hallucinations she attributes to lack of sleep. e.g., small critters crawling on her leg Review of Systems Ten Systems: 10 systems reviewed and negative Constitutional: denies: Fever, Chills : denies: Dysuria, Frequency Psychiatric: reports: Depressed, Hallucinations, Insomnia. denies: Suicidal, Homicidal PD PAST MEDICAL HISTORY - Past Medical History Past Medical History: Yes Cardiovascular: Deep vein thrombosis Other Past Medical History: L leg DVT - Past Surgical History Past Surgical History: Yes /[employer]: Dilation and currettage, Tubal ligation - Present Medications Home Medications: Ambulatory Orders Medication Instructions Recorded Confirmed Doxepin [SINEquan] 25 mg PO QPM PRN #30 tab 05/11/22 Thyroid,Pork [[place] Thyroid] 90 mg PO DAILY 05/11/22 05/11/22 Zolpidem [Ambien] 10 mg PO QPM 05/11/22 05/11/22 - Allergies Allergies/Adverse Reactions: Allergies Allergy/AdvReac Type Severity Reaction Status Date / Time acetaminophen [From Percocet] Allergy Itching Verified 05/10/22 21:00 oxycodone [From Percocet] Allergy Itching Verified 05/10/22 21:00 - Social History Does the pt smoke?: No Smoking Status: Never smoker Does the pt drink ETOH?: No Does the pt have substance abuse?: No - Immunizations Immunizations are current?: Yes - POLST Patient has POLST: No PD ED PE NORMAL - Vitals Vital signs reviewed: Yes - General General: Alert and oriented X 3, No acute distress, Well developed/nourished - HEENT HEENT: Atraumatic, PERRL, EOMI - Neck Neck: Supple, no meningeal sign, Thyroid normal - Cardiac Cardiac: RRR - Respiratory Respiratory: No respiratory distress, Clear bilaterally - Abdomen Abdomen: Non tender, Non distended - Derm Derm: Normal color, Warm and dry - Extremities Extremities: No deformity - Neuro Neuro: No motor deficit, No sensory deficit, Normal speech - Psych Psych: Other (depressed affect) Results - Vitals Vitals: Vital Signs - 24 hr 05/10/22 05/10/22 05/11/22 20:56 23:14 00:15 Temperature 36.6 C 36.9 C Heart Rate 86 65 65 Respiratory 16 17 18 Rate Blood Pressure 149/90 H 120/75 120/66 O2 Saturation 99 97 100 05/11/22 02:18 Temperature 36.9 C Heart Rate 70 Respiratory 16 Rate Blood Pressure 133/73 H O2 Saturation 100 Oxygen O2 Source Room air - Labs Labs: Laboratory Tests 05/11/22 01:34 Cortisol 9.3 PD MEDICAL DECISION MAKING - ED course ED course: 46yF p/w new onset severe acute insomnia, refractory to two day course of ambien. will trial doxepin. patient has appointment this week with her pcp to discuss options. return precautions given. Departure - Departure Disposition: Home, Self Care Clinical Impression: Insomnia Condition: Stable Instructions: Insomnia Prescriptions: Doxepin [SINEquan] 25 mg PO QPM PRN #30 tab PRN Reason: Insomnia Comments: You were seen in the emergency department for evaluation of insomnia. Try taking doxepin (prescribed electronically to [facility]) and follow-up with your primary care provider this week. Return to the emergency department if you have new or worsening symptoms, if you continue to be unable to sleep, or have other concerns. Forms: Activity restrictions Discharge Date/Time: 05/11/22 02:40
[2022-05-11 02:24] VITALS: BP 133/73
[2022-05-11] MEDS ORDERED: DOXEPIN 25 MG CAPSULE PO STA (02:29)
[2022-05-11] MEDS ORDERED: DOXEPIN 10 MG CAPSULE PO STA (02:34)
[2022-05-11] MEDS ORDERED: DOXEPIN 10 MG CAPSULE PO ONE (02:37)
[2022-05-11] MEDS ORDERED: DOXEPIN 25 MG CAPSULE PO SCH (21:00)
== END 2022-05-11 02:40 | disposition home or self-care (01) ==
LOC: ED 20:19
DX: G47.00 Insomnia, unspecified (principal)
CPT/HCPCS: 36415; 82533; 99283; A9270; 82530

== ENCOUNTER 2022-05-23 00:46 | Emergency (ER) | payer BC ==
--- OUTSIDE RECORDS SUMMARY | 2022-05-23 00:57 | EXTERNAL MEDICAL SUMMARY RPT | Continuity of Care Document ---
:1975 Author Organization [facility] Address [address] [place] [address] Phone Allergies and Intolerances date description facility type (no date) No Known Drug Allergies [facility] (unkn own) Encounters No information. Functional Status No information. Immunizations No information. Medications No information. Problems No information. Procedures No information. Results/Labs test date author facility value unit interpret ation Result panel 1 (unknown) (no (unknown) (unknown) (no value) (units (unk nown) date) unknown) (unknown) (no (unknown) (unknown) ([place] [facility]) (units (unknown) date) unknown) (unknown) (no [...] (unknown) (unknown) : 1975 (units (unknown) date) Acct:[id number] unknown) (unknown) (no (unknown) (unknown) DVT (deep [...] menstrual cycle unknown) (unknown) (no (unknown) (unknown) [facility] (units (unknown) date) [address] [place] [address] unknown) [place] [address] (unknown) (no (unknown) (unknown) Label Comments: (units [...] (unkno wn) date) Alta Betancourt MR#: unknown) [id number] (unknown) (no (unknown) (unknown) Prescriptions: (units (unknown) [...] (unknown) (unknown) thyroid (pork) (units (unknown) date) [[place] [facility]roid] unknown) 60 mg tablet (unknown) (no (unknown) (unknown) tramadol 50 mg (units (unknown) date) tablet 50 mg PO unknown) Q6H PRN pain #20 tabs 09/24/21 (unknown) (no (unknown) (unknown) tramadol 50 mg (units (unknown) date) tablet unknown) Result panel 2 (unknown) (no (unknown) (unknown) (no value) (units (unk nown) date) unknown) (unknown) (no (unknown) (unknown) ([place] [facility]) (units (unknown) date) unknown) (unknown) (no [...] (unknown) (unknown) : 1975 (units (unknown) date) Acct:[id number] unknown) (unknown) (no (unknown) (unknown) DVT (deep [...] (units (unk nown) date) thyroid surgery unknown) (-02/2001) (unknown) (no (unknown) (unknown) History of tubal (units (unknown) date) ligation unknown) () (unknown) (no (unknown) (unknown) Home Medications (units (unknown) date) unknown) (unknown) (no (unknown) (unknown) Initial Vital (units ( unknown) date) Signs unknown) (unknown) (no (unknown) (unknown) Initial Vital (units ( unknown) date) Signs: unknown) (unknown) (no (unknown) (unknown) Irregular (units (unkn own) date) menstrual cycle unknown) (unknown) (no (unknown) (unknown) [facility] (units (unknown) date) [address] unknown) [place] [address] (unknown) (no (unknown) (unknown) Label Comments: (units [...] (unkno wn) date) Alta Betancourt MR#: unknown) [id number] (unknown) (no (unknown) (unknown) Prescriptions: (units (unknown) [...] (unknown) (unknown) thyroid (pork) (units (unknown) date) [[place] Thyroid] unknown) 60 mg tablet (unknown) (no (unknown) (unknown) tonsillar (units (unkn own) date) hypertrophy or unknown) exudate. Airway patent. (unknown) (no (unknown) (unknown) tramadol 50 mg (units (unknown) date) tablet 50 mg PO unknown) Q6H PRN pain #20 tabs 09/24/21 (unknown) (no (unknown) (unknown) tramadol 50 mg (units (unknown) date) tablet unknown) (unknown) (no (unknown) (unknown) various (units (unkno wn) date) [id number] unknown) medications including Benadryl, melatonin, Unisom, (unknown) (no (unknown) (unknown) work patterns, (units (unknown) date) new unknown) myee-ccv-zhemshw medications or supplements. Result panel 3 (unknown) [...] nown) date) unknown) (unknown) (no (unknown) (unknown) ([place] [facility]) (units (unknown) date) unknown) (unknown) (no [...] (unknown) (unknown) : 1975 (units (unknown) date) Acct:[id number] unknown) (unknown) (no (unknown) (unknown) DVT (deep [...] menstrual cycle unknown) (unknown) (no (unknown) (unknown) [facility] (units (unknown) date) [address] unknown) [place] [address] (unknown) (no (unknown) (unknown) Lab Data (units (unkno wn) date) unknown) (unknown) (no (unknown) (unknown) Lab Results (units (un known) date) unknown) (unknown) (no (unknown) (unknown) Label Comments: (units (unknown) date) unknown) (unknown) (no (unknown) (unknown) Labs: (units (unkno wn) date) unknown) (unknown) (no (unknown) (unknown) Lymph # (Auto) (units (unknown) date) 1600 ([id number]) unknown) /uL (unknown) (no (unknown) (unknown) Lymph [...] date) Ambulatory unknown) (unknown) (no (unknown) (unknown) [place] # (Auto) (units ( unknown) date) 300 (0-900) /uL unknown) (unknown) (no (unknown) (unknown) [place] % (Auto) (units ( unknown) date) 6.1 [...] # (Auto) (units ( unknown) date) 3400 ([id number]) unknown) /uL (unknown) (no (unknown) (unknown) Neut [...] (unkno wn) date) Alta Betancourt MR#: unknown) [id number] (unknown) (no (unknown) (unknown) Plt Count 310 [...] (unknown) (unknown) thyroid (pork) (units (unknown) date) [[place] Thyroid] unknown) 60 mg tablet (unknown) (no (unknown) (unknown) tonsillar (units (unkn own) date) hypertrophy or unknown) exudate. Airway patent. (unknown) (no (unknown) (unknown) tramadol 50 mg (units (unknown) date) tablet 50 mg PO unknown) Q6H PRN pain #20 tabs 09/24/21 (unknown) (no (unknown) (unknown) tramadol 50 mg (units (unknown) date) tablet unknown) (unknown) (no (unknown) (unknown) various (units (unkno wn) date) [id number] unknown) medications including Benadryl, melatonin, Unisom, (unknown) (no (unknown) (unknown) work patterns, (units (unknown) date) new unknown) vhat-jnd-stmehqt medications or supplements. Result panel 6 (unknown) (no date) (unknown) (unknown) 2.30 uiu/ml (unkn own) Result panel 7 (unknown) (no (unknown) (unknown) (no value) (units (unk nown) date) unknown) (unknown) (no (unknown) (unknown) ([place] Thyroid) (units (unknown) date) unknown) (unknown) (no [...] (unknown) (unknown) : 1975 (units (unknown) date) Acct:[id number] unknown) (unknown) (no (unknown) (unknown) DVT (deep [...] unknown) (unknown) (no (unknown) (unknown) HEAD: (units (o wn) date) Atraumatic. unknown) Normocephalic. (unknown) (no [...] % unknown) (unknown) (no (unknown) (unknown) Herpes () [...] menstrual cycle unknown) (unknown) (no (unknown) (unknown) [facility] (units (unknown) date) [address] unknown) [place] [address] (unknown) (no (unknown) (unknown) Lab Data (units (unkno wn) date) unknown) (unknown) (no (unknown) (unknown) Lab Results (units (un known) date) unknown) (unknown) (no (unknown) (unknown) Label Comments: (units (unknown) date) unknown) (unknown) (no (unknown) (unknown) Labs: (units (unkno wn) date) unknown) (unknown) (no (unknown) (unknown) Lymph # (Auto) (units (unknown) date) 1600 ([id number]) unknown) /uL (unknown) (no (unknown) (unknown) Lymph [...] date) Ambulatory unknown) (unknown) (no (unknown) (unknown) [place] # (Auto) (units ( unknown) date) 300 (0-900) /uL unknown) (unknown) (no (unknown) (unknown) [place] % (Auto) (units ( unknown) date) 6.1 [...] # (Auto) (units ( unknown) date) 3400 ([id number]) unknown) /uL (unknown) (no (unknown) (unknown) Neut [...] (unkno wn) date) Alta Betancourt MR#: unknown) [id number] (unknown) (no (unknown) (unknown) Plt Count 310 [...] (unknown) (unknown) thyroid (pork) (units (unknown) date) [[place] Thyroid] unknown) 60 mg tablet (unknown) (no (unknown) (unknown) tonsillar (units (unkn own) date) hypertrophy or unknown) exudate. Airway patent. (unknown) (no (unknown) (unknown) tramadol 50 mg (units (unknown) date) tablet 50 mg PO unknown) Q6H PRN pain #20 tabs 09/24/21 (unknown) (no (unknown) (unknown) tramadol 50 mg (units (unknown) date) tablet unknown) (unknown) (no (unknown) (unknown) various (units (unkno wn) date) jphc-hhs-isnjqxt unknown) medications including Benadryl, melatonin, Unisom, (unknown) (no (unknown) (unknown) work patterns, (units (unknown) date) new unknown) ezct-jjn-vuqrfva medications or supplements. Result panel 8 (unknown) (no (unknown) (unknown) (no value) (units (unk nown) date) unknown) (unknown) (no (unknown) (unknown) ([place] Thyroid) (units (unknown) date) unknown) (unknown) (no (unknown) (unknown) *If you do not (units (unknown) date) have a primary unknown) care provider please contact the [facility] (unknown) (no (unknown) (unknown) *Please continue (units [...] (unknown) (unknown) : 1975 (units (unknown) date) Acct:[id number] unknown) (unknown) (no (unknown) (unknown) DVT (deep [...] unknown) (unknown) (no (unknown) (unknown) HEAD: (units (o wn) date) Atraumatic. unknown) Normocephalic. (unknown) (no [...] menstrual cycle unknown) (unknown) (no (unknown) (unknown) [facility] (units (unknown) date) [address] unknown) [place] [address] (unknown) (no (unknown) (unknown) Lab Data (units (unkno wn) date) unknown) (unknown) (no (unknown) (unknown) Lab Results (units (un known) date) unknown) (unknown) (no (unknown) (unknown) Label Comments: (units (unknown) date) unknown) (unknown) (no (unknown) (unknown) Labs: (units (unkno wn) date) unknown) (unknown) (no (unknown) (unknown) Lymph # (Auto) (units (unknown) date) 1600 ([id number]) unknown) /uL (unknown) (no (unknown) (unknown) Lymph [...] date) Ambulatory unknown) (unknown) (no (unknown) (unknown) [place] # (Auto) (units ( unknown) date) 300 (0-900) /uL unknown) (unknown) (no (unknown) (unknown) [place] % (Auto) (units ( unknown) date) 6.1 [...] # (Auto) (units ( unknown) date) 3400 ([id number]) unknown) /uL (unknown) (no (unknown) (unknown) Neut [...] (units (unkno wn) date) menstrual periods unknown) () (unknown) (no (unknown) (unknown) Patient (units (unkno wn) date) Disposition: Home unknown) (unknown) (no (unknown) (unknown) Patient History (units (unknown) date) unknown) (unknown) (no (unknown) (unknown) Patient: (units (unkno wn) date) Alta Betancourt MR#: unknown) [id number] (unknown) (no (unknown) (unknown) Plt Count 310 [...] (unknown) Resource line at (units (unknown) date) [phone]. unknown) They will ask some questions about [...] (unknown) (unknown) thyroid (pork) (units (unknown) date) [[place] Thyroid] unknown) 60 mg tablet (unknown) (no [...] (unknown) (unknown) various (units (unkno wn) date) [id number] unknown) medications including Benadryl, melatonin, Unisom, (unknown) (no (unknown) (unknown) work patterns, (units (unknown) date) new unknown) pmnh-zwf-wpsbxsg medications or supplements. (unknown) (no (unknown) (unknown) worsening pain, (units (unknown) date) persistent unknown) vomiting or other bothersome symptoms] Result panel 9 (unknown) (no (unknown) (unknown) (no value) (units (unk nown) date) unknown) (unknown) (no (unknown) (unknown) <Electronically (units (unknown) date) signed by Thien unknown) Rylee Magallanes> (unknown) (no (unknown) (unknown) ([place] Thyroid) (units (unknown) date) unknown) (unknown) (no (unknown) (unknown) *If you do not (units (unknown) date) have a primary unknown) care provider please contact the [facility] (unknown) (no (unknown) (unknown) *Please continue (units [...] (unknown) (unknown) : 1975 (units (unknown) date) Acct:[id number] unknown) (unknown) (no (unknown) (unknown) DVT (deep [...] (unknown) (no (unknown) (unknown) : Denies (units () date) dysuria, unknown) frequency, incontinence, hematuria, urinary retention. (unknown) (no (unknown) (unknown) General (units ( wn) date) unknown) (unknown) (no (unknown) (unknown) Glucose 78 (units () date) (70-100) mg/dL unknown) (unknown) (no (unknown) [...] (unknown) (no (unknown) (unknown) Hgb 13.1 (units ( wn) date) (12.0-16.0) g/dL unknown) (unknown) (no [...] menstrual cycle unknown) (unknown) (no (unknown) (unknown) [facility] (units (unknown) date) [address] unknown) [place] [address] (unknown) (no (unknown) (unknown) Lab Data (units (unkno wn) date) unknown) (unknown) (no (unknown) (unknown) Lab Results (units (un known) date) unknown) (unknown) (no (unknown) (unknown) Label Comments: (units (unknown) date) unknown) (unknown) (no (unknown) (unknown) Labs: (units (unkno wn) date) unknown) (unknown) (no (unknown) (unknown) Lymph # (Auto) (units (unknown) date) 1600 ([id number]) unknown) /uL (unknown) (no (unknown) (unknown) Lymph [...] date) Ambulatory unknown) (unknown) (no (unknown) (unknown) [place] # (Auto) (units ( unknown) date) 300 (0-900) /uL unknown) (unknown) (no (unknown) (unknown) [place] % (Auto) (units ( unknown) date) 6.1 [...] # (Auto) (units ( unknown) date) 3400 ([id number]) unknown) /uL (unknown) (no (unknown) (unknown) Neut [...] (unkno wn) date) Alta Betancourt MR#: unknown) [id number] (unknown) (no (unknown) (unknown) Plt Count 310 [...] (unknown) Resource line at (units (unknown) date) [phone]. unknown) They will ask some questions about [...] medication unknown) prescriptions sent to your pharmacy: [[facility] ] (unknown) (no (unknown) (unknown) alcohol intake [...] (unknown) (unknown) thyroid (pork) (units (unknown) date) [[place] Thyroid] unknown) 60 mg tablet (unknown) (no [...] (unknown) (unknown) various (units (unkno wn) date) uicj-dlm-iknxytt unknown) medications including Benadryl, melatonin, Unisom, (unknown) (no (unknown) (unknown) work patterns, (units (unknown) date) new unknown) xgur-njq-qssqzfn medications or supplements. (unknown) (no (unknown) (unknown) [...]
--- NOTE | 2022-05-23 01:16 | XRAY Report ---
PROCEDURE: Chest 1 View X-Ray INDICATIONS: Chest pain TECHNIQUE: One view of the chest was acquired. COMPARISON: 02/16/2021. FINDINGS: Surgical changes and devices: None. Lungs and pleura: No pleural effusions or pneumothorax. Lungs are clear. Mediastinum: Mediastinal contours appear normal. Heart size is normal. Bones and chest wall: No suspicious bony lesions. Overlying soft tissues appear unremarkable. IMPRESSION: 1. No acute cardiopulmonary disease. Reviewed by: Alexei Lauren MD on 05/23/2022 1:14 AM [facility] Approved by: Alexei Lauren MD on 05/23/2022 1:14 AM [facility] Station ID: [id number]
[2022-05-23 01:20] LABS: BASOPHILS # (AUTO) 0.1 10^3/uL (0.0-0.1); BASOPHILS % (AUTO) 0.6 %; EOSINOPHILS # (AUTO) 0.2 10^3/uL (0.0-0.7); EOSINOPHILS % (AUTO) 2.4 %; HCT - HEMATOCRIT 38.8 % (37.0-47.0); HGB - HEMOGLOBIN 12.8 g/dL (12.0-16.0); LYMPHOCYTES # (AUTO) 3.3 10^3/uL (1.5-3.5); LYMPHOCYTES % (AUTO) 38.7 %; MEAN CORPUSCULAR HEMOGLOBIN 28.6 pg (27.0-31.0); MEAN CORPUSCULAR VOLUME 86.6 fL (81.0-99.0); MEAN PLATELET VOLUME 9.6 fL (7.9-10.8); MONOCYTES # (AUTO) 0.5 10^3/uL (0.0-1.0); MONOCYTES % (AUTO) 5.5 %; NEUTROPHILS # (AUTO) 4.4 10^3/uL (1.5-6.6); NEUTROPHILS % (AUTO) 52.7 %; PLT - PLATELET COUNT 317 10^3/uL (130-450); RED BLOOD COUNT 4.48 10^6/uL (4.20-5.40); RED CELL DISTRIBUTION WIDTH 13.7 % (12.0-15.0); WHITE BLOOD COUNT 8.4 x10^3/uL (4.8-10.8)
[2022-05-23 01:34] LABS: ALBUMIN 4.4 g/dL (3.2-5.5); ALBUMIN/GLOBULIN RATIO 1.5 (1.0-2.2); BILIRUBIN,TOTAL 0.4 mg/dL (0.2-1.0); CREATININE 0.8 mg/dL (0.4-1.0); POTASSIUM 3.9 mmol/L (3.5-5.0); TOTAL PROTEIN 7.4 g/dL (6.7-8.2)
[2022-05-23] MEDS ORDERED: KETOROLAC 30 MG/ML VIAL IM STA (04:53)
--- NOTE | 2022-05-23 04:59 | ED Physician Documentation ---
History of Present Illness - Stated complaint Stated Complaint: CHEST PX - Chief complaint Chief Complaint: Cardiac - History obtained from History obtained from: Patient - Additonal information Additional information: 46-year-old woman with recent ED visit for insomnia presents with the same today in addition to left-sided chest pain that is moderate severity, nonradiating, left-sided, worse with pressing on it, yawning, laughing, turning head, deep breathing.Denies cough, shortness of breath, fever, nausea. She has had bilateral leg swelling recently but attributed it to eating salty food. Review of Systems Ten Systems: 10 systems reviewed and negative Constitutional: denies: Fever, Chills Cardiac: reports: Chest pain / pressure Respiratory: denies: Dyspnea, Cough PD PAST MEDICAL HISTORY - Past Medical History Cardiovascular: Deep vein thrombosis - Past Surgical History Past Surgical History: Yes /SIGNAL INTELLIGENCE/ELECTRONIC WARFARE: Dilation and currettage, Tubal ligation - Present Medications Home Medications: Ambulatory Orders Medication Instructions Recorded Confirmed Doxepin [SINEquan] 25 mg PO QPM PRN #30 tab 05/11/22 Thyroid,Pork [[place] Thyroid] 90 mg PO DAILY 05/11/22 05/11/22 Zolpidem [Ambien] 10 mg PO QPM 05/11/22 05/11/22 - Allergies Allergies/Adverse Reactions: Allergies Allergy/AdvReac Type Severity Reaction Status Date / Time acetaminophen [From Percocet] Allergy Itching Verified 05/23/22 00:59 oxycodone [From Percocet] Allergy Itching Verified 05/23/22 00:59 - Social History Does the pt smoke?: No Smoking Status: Never smoker Does the pt drink ETOH?: No Does the pt have substance abuse?: No - Immunizations Immunizations are current?: Yes - POLST Patient has POLST: No PD ED PE NORMAL - Vitals Vital signs reviewed: Yes - General General: Alert and oriented X 3, No acute distress, Well developed/nourished - HEENT HEENT: Atraumatic, PERRL, EOMI, Moist mucous membranes - Neck Neck: Supple, no meningeal sign - Cardiac Cardiac: RRR - Respiratory Respiratory: No respiratory distress, Clear bilaterally - Abdomen Abdomen: Non tender, Non distended - Derm Derm: Normal color, Warm and dry - Extremities Extremities: No deformity - Neuro Neuro: Alert and oriented X 3, No motor deficit, No sensory deficit - Psych Psych: Normal mood, Normal affect Results - Vitals Vitals: Vital Signs - 24 hr 05/23/22 05/23/22 05/23/22 00:50 02:31 04:00 Temperature 36.2 C L Heart Rate 74 73 64 Respiratory 20 17 18 Rate Blood Pressure 130/72 135/84 H 110/77 O2 Saturation 100 100 100 Oxygen O2 Source Room air - EKG (time done) 0053 Rate: Rate (enter#) (70) Rhythm: NSR Bath: Normal Intervals: Normal OK QRS: Normal Ischemia: Normal ST segments - Labs Labs: Laboratory Tests 05/23/22 05/23/22 05/23/22 01:13 01:13 01:13 WBC 8.4 RBC 4.48 Hgb 12.8 Hct 38.8 MCV 86.6 MCH 28.6 MCHC 33.0 RDW 13.7 Plt Count 317 MPV 9.6 Neut # (Auto) 4.4 Lymph # (Auto) 3.3 [place] # (Auto) 0.5 Eos # (Auto) 0.2 Baso # (Auto) 0.1 Absolute Nucleated RBC 0.00 Nucleated RBC % 0.0 D-Dimer Sodium 137 Potassium 3.9 Chloride 103 Carbon Dioxide 26 Anion Gap 8.0 BUN 16 Creatinine 0.8 Estimated GFR (MDRD) 77 L Glucose 101 H Calcium 9.0 Total Bilirubin 0.4 AST 29 ALT 26 Alkaline Phosphatase 63 Troponin I High Sens < 2.3 L Total Protein 7.4 Albumin 4.4 Globulin 3.0 Albumin/Globulin Ratio 1.5 Lipase 46 05/23/22 05:04 WBC RBC Hgb Hct MCV MCH MCHC RDW Plt Count MPV Neut # (Auto) Lymph # (Auto) [place] # (Auto) Eos # (Auto) Baso # (Auto) Absolute Nucleated RBC Nucleated RBC % D-Dimer < 200.0 L Sodium Potassium Chloride Carbon Dioxide Anion Gap BUN Creatinine Estimated GFR (MDRD) Glucose Calcium Total Bilirubin AST ALT Alkaline Phosphatase Troponin I High Sens Total Protein Albumin Globulin Albumin/Globulin Ratio Lipase PD MEDICAL DECISION MAKING - ED course ED course: Unable to PERC patient out due to prior history of DVT. Will obtain D-dimer given low clinical likelihood of DVT as inciting cause of her chest pain. Suspect muscular cause. Lab work, EKG, chest x-ray noncontributory. d dimer negative. plan to dc home to f/u with pcp. return precautions given. Departure - Departure Disposition: Home, Self Care Clinical Impression: Chest pain, Insomnia Condition: Stable Instructions: ED Chest Pain NonCardiac Comments: You were seen in the ED for chest pain. Your lab work, EKG, and chest x-ray uncovered no emergent cause for your symptoms. Please follow-up with your primary care provider and return to the emergency department if you have any New or worsening symptoms. COGNITIVE BEHAVIORAL THERAPY FOR INSOMNIA Cognitive behavioral therapy for insomnia, or "CBT-I," is often recommended as the initial treatment for chronic insomnia (insomnia lasting for longer than three months). This may be sufficient in improving insomnia, although in some cases, medication is recommended as well (usually after first trying CBT-I). (See 'Medications for insomnia' below.) CBT-I involves working with a therapist over several weeks to identify and address factors that contribute to insomnia and correct harmful sleep habits. Components of CBT-I include sleep education, sleep restriction or compression, stimulus control, sleep hygiene, cognitive therapy, and relaxation exercises. These are discussed in more detail below. Sleep education This involves working with a health care provider or therapist to learn about what happens during sleep and how insomnia can develop and persist. Sleep restriction or sleep compression Sleep restriction involves keeping track of how much time you spend in bed and how much of that time is spent sleeping versus awake. Often, people with insomnia spend extra time in bed to try to make up for lost sleep, then find that this makes it harder to fall asleep again the next night. This perpetuates the cycle of insomnia. With sleep restriction, you work with a therapist to keep a "sleep diary" to better understand your habits. Then you set a specific schedule for when to go to bed and when to get up, and you keep to that schedule even if you don't sleep the whole time. This helps to make you tired enough to get more restful sleep on subsequent nights. As your sleep improves over time, you can increase the amount of time you spend in bed again. It's important to work with a professional if you are trying sleep restriction, as the process can make you feel more tired during the day at the beginning, which can be dangerous if you are trying to do activities that require you to be focused and alert. "Sleep compression" is a similar approach that also involves keeping a sleep diary and setting a routine bedtime and wake time. However, it involves shortening the window of time in bed more gradually; this may be recommended for some people for whom sleep restriction may not be safe (for example, those with certain medical or psychiatric conditions). Stimulus control Stimulus control therapy is based on the idea that some people with insomnia associate their bedroom and bed with staying awake rather than sleeping. To help with this: ?Go to bed only when you feel sleepy. ?Use your bed and bedroom only for sleep and sex. ?If you cannot fall asleep within about 20 minutes, get up, go to another room and read or find another relaxing activity until you feel sleepy again. Activities such as eating, balancing your checkbook, doing housework, watching TV, or studying for a test, which "reward" you for staying awake, should be avoided. ?Do not nap during the day. Sleep hygiene Sleep hygiene teaches good sleeping habits (table 1). To practice good sleep hygiene: ?Set a regular sleep schedule (the same bedtime and wake time every day). Sleep only as much as you need to feel rested, then get out of bed. ?Avoid caffeine after lunch. ?Avoid alcohol near bedtime. ?Do not smoke (particularly during the evening). ?Get regular exercise during the day, but try to avoid rigorous exercise within two hours of bedtime. ?Keep your room quiet and dark. You can use a fan or white noise machine to help reduce noise, and blackout shades or an eye mask can help reduce light. ?Avoid checking the time during the night. ?Avoid looking at screens (including televisions, smartphones, laptops, and tablets) at bedtime. Light from screens can make it harder to fall asleep. ?Avoid eating a large meal close to bedtime, but don't go to bed hungry. Try to eat a healthy and filling (but not too heavy) meal in the evening and avoid late-night snacks. Cognitive therapy People who are awake at night often become concerned that they will perform poorly the next day if they do not sleep enough, and they begin struggling with sleep. This can create a cycle where being awake at night increases your anxiety, which then makes it more difficult to sleep. You may begin to blame all negative events in your life on poor sleep. During cognitive therapy, you work with a therapist to deal with negative thinking that contributes to sleep-related anxiety. Relaxation exercises Techniques to help with relaxation are often part of a CBT-I program. Common approaches include: ?Progressive muscle relaxation This involves progressively relaxing your muscles from your head down to your feet. Here is a sample of a relaxation program: Beginning with the muscles in your face, squeeze (contract) your muscles gently for one to two seconds and then relax. Repeat several times. Use the same technique for other muscle groups, usually in the following sequence (working your way down the body): jaw and neck, shoulders, upper arms, lower arms, fingers, chest, abdomen, buttocks, thighs, calves, and feet. ?Diaphragmatic breathing This is a deep breathing technique that can help you relax. The table includes instructions for how to do this (table 2). ?Mindfulness This involves trying to be present in the moment and aware of your physical sensations, thoughts, and emotions. TABLE 2 Breathing with your diaphragm NOTE: Before using this type of breathing to help with sleep, practice it daily until it becomes easy to get into a relaxed state. It might help to write down each time you practice, so you can keep track. Wear comfortable clothing. Sit in a comfortable chair with both feet on the floor. Place one hand at the top of your chest and the other on your belly with your little finger about 1 inch above your belly button. Breathe slowly through your nose using only your diaphragm. Try not to use your chest muscles at all. When you are doing this correctly: Your belly should swell out as you breathe in, and fall back in as you breathe out. Only your lower hand (on your belly) should move. Once you are breathing only with your diaphragm, start counting your breaths: Count each time you breathe in, then think the word "out" as you breathe out (think "1, out," "2, out," "3, out..."). Do this for a total of 10 breaths counting forward from 1 to 10. Then do another 10 breaths counting backward from 10 to 1. Breathe at your own pace. Try not to breathe faster or slower than normal. Concentrate on using only your diaphragm. When you are done counting breaths, let your hands rest in your lap or at your side for a minute while you breathe normally. Then get up slowly.
[2022-05-23] MEDS ORDERED: methocarbamoL 500 MG TABLET PO STA (06:04)
[2022-05-23 06:06] VITALS: BP 120/73
== END 2022-05-23 06:13 | disposition home or self-care (01) ==
LOC: ED 00:46
DX: G47.00 Insomnia, unspecified (principal); R07.9 Chest pain, unspecified
CPT/HCPCS: 36415; 71045; 80053; 83690; 84484; 85025; 85379; 93005; 96372; 99282; 99284; A9270

== ENCOUNTER 2022-07-08 14:57 | Outpatient (CLI) | payer OTHER, BC ==
--- NOTE | 2022-07-08 16:45 | XRAY Report ---
PROCEDURE: Lumbar Spine 2 View INDICATIONS: BILATERAL LOWER LEG TINGLING FROM KNEES DOWN TECHNIQUE: 2 views of the lumbar spine were acquired. COMPARISON: None. FINDINGS: Bones: 5 [id number] vertebrae are present. There is normal bony alignment. No vertebral body compression fractures. No suspicious bony lesions. Mild lower lumbar disc height loss and facet art hropathy. Soft tissues: Overlying bowel gas pattern is normal. No suspicious soft tissue calcifications. IMPRESSION: Mild degenerative change. Comment: Lumbar spine MRI may be helpful. Reviewed by: Dago Junior MD on 07/08/2022 4:44 PM PST Approved by: Dago Junior MD on 07/08/2022 4:44 PM PST Station ID: [id number]
== END 2022-07-08 14:58 | disposition home or self-care (01) ==
LOC: DI 14:57
PROVIDERS: ATTEND Chiropractor
DX: M47.816 Spondylosis without myelopathy or radiculopathy, lumbar region (principal)

== ENCOUNTER 2022-10-25 08:17 | Outpatient (CLI) | payer BC ==
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
[2022-10-25 09:41] VITALS: BP 118/72
== END 2022-10-25 08:18 | disposition home or self-care (01) ==
LOC: SC 08:17
PROVIDERS: ATTEND Nurse Practitioner Family
DX: G47.00 Insomnia, unspecified (principal); R51.9 Headache, unspecified; G47.8 Other sleep disorders; R41.89 Other symptoms and signs involving cognitive functions and awareness; G47.10 Hypersomnia, unspecified; E66.9 Obesity, unspecified; Z68.32 Body mass index [BMI] 32.0-32.9, adult
CPT/HCPCS: 99203; 99212

== ENCOUNTER 2022-11-17 21:17 | Outpatient (CLI) | payer BC | END 2022-11-17 21:18 | disposition home or self-care (01) | LOC: SC 21:17 | PROVIDERS: ATTEND Nurse Practitioner Family | DX: G47.10 Hypersomnia, unspecified (principal); R53.83 Other fatigue; G47.00 Insomnia, unspecified; F32.A Depression, unspecified; I49.9 Cardiac arrhythmia, unspecified; E66.9 Obesity, unspecified; Z68.31 Body mass index [BMI] 31.0-31.9, adult | CPT/HCPCS: 95810 ==

== ENCOUNTER 2022-12-16 16:08 | Outpatient (CLI) | payer BC ==
--- NOTE | 2022-12-16 16:29 | SLEEP CARE CONSULTATION ---
Information from patient questionnaire entered by Oneida Mao. I have reviewed and concur with the information entered by Oneida Mao. This document represents the service I personally performed and the decisions made by , Johnna Drummond ARNP. History of Present Illness Service Date and Time: 12/16/2022 1620 Initial [place] Sleepiness Scale score: 4 (09/10/22) Current [place] Sleepiness Scale score: 2 Additional HPI information: ISIS BETANCOURT returns for follow up and results of the recently performed polysomnography. She did take her temazepam. The patient was informed of the following findings: No significant sleep disorde red breathing with an average AHI of 0.5 and karine oxygen saturation of 87%. I explained the pathophysiology behind obstructive sleep apnea. Patient does not have sleep apnea and was advised how weight gain could increase the risk of developing sleep apnea in the future. I strongly encouraged the patient to lose weight. Patient has light snoring. Snoring can be reduced by weight loss. Weight loss is best achieved with diet consult. Patient instructed to contact PCP for referral. Snoring can also be treated with an oral appliance from a dentist. Advised to check insurance coverage. In addition, an ENT evaluation can be do to see if other treatment is indicated. Patient counseled not drink alcohol less than 4 hours before bedtime as it can increase snoring and apnea. Patient was cautione d about risks of drowsy driving until sleepiness symptoms resolve. Patient denies drowsy driving. Sleep Study - Results Type of Sleep Study: Polysomnography (COMPLETED 11/17/22) Prior sleep studies: No Polysomnography/Home Sleep Study results: IMPRESSION: The quality of the study is good. The patient had slightly reduced sleep efficiency due to a prolonged awakening in the middle of the night. The sleep architecture was relatively normal considering the firstnight effect. Respiratory monitoring showed no significant sleep disordered breathing (AHI = 0.5) or hypoxia (karine oxygen saturation of 87%). The patient slept adequately in supine position (supine AHI = 1.3; non-supine = 0.00). Snore was infrequent and light in intensity. There was no significant periodic leg movement of sleep. Cardiac rhythm was normal sinus rhythm without significant arrhythmia. No abnormal behavior (parasomnia) observed during the night. Allergies and Home Medications Known drug allergies: Yes (as listed) Drug allergies reviewed: Yes Home medication list reviewed: Yes (stopped [place] and started Levothyroxine 125 mcg) Allergy and home medication list: Allergies acetaminophen [From Percocet] Allergy (Verified 12/15/22 14:22) Itching oxycodone [From Percocet] Allergy (Verified 12/15/22 14:22) Itching Review of Systems Review of systems same as previous: Yes (no changes) Physical Exam Vital signs obtained and entered by: Johnna Dinh NP Blood Pressure: 117/79 Cuff size: wrist (right) Heart Rate: 54 O2 Saturation: 99 Height: 5 ft 9 in Weight: 217 lb Body Mass Index: 32.0 BMI Classification: Obese Impression and Plan 1. Insomnia, unspecified. Patient with history of not able to got to and stay asleep. She is taking temazpam now and able to go to sleep in about 45 minutes. She will wake up and have revolving thoughts that keep her from getting back to sleep. The latest she can sleep is usually 5 AM. She reads at bedtime. She avoids screen time. She has a night-time routine to prepare for bed. Insomnia is generally caused by an irregular sleep schedule, spending too much time in bed, napping, caffeine, electronics, lack of a relaxing bedtime ritual and clock watching. Other factors can include anxiety/depression, pain, medications, and obstructive sleep apnea. A sleep diary will be completed for the next 2 weeks to assist implementation of recommendations and for further evaluation of sleep concerns. 2. Snoring but no significant sleep disordered breathing. Patient advised that often weight loss will reduce snoring as well as apnea risk. An oral appliance can also be used for snoring. This would require a dental consultation. Patient cautioned not to use other online appliances as can cause bite issues. A list of accredited dentists in [facility] and one local dentist who makes oral appliances is available in office as needed. Patient is advised to check if insurance will cover. An ENT consult can also be helpful to determine if any other treatment is an option. * Follow up with Dr. Montanez for insomnia * 2 weeks sleep diary * Attempt to lose weight * Avoid alcohol consumption near bedtime * The patient is cautioned about driving until sleepiness is completely reso lved. * Return 1-2 months for follow up. Counseling Topics: Weight loss health impact Visit Type: In Office Time Spent with Patient (minutes): 23 Provider Statement: I spent 100% of the Face to Face Visit with the patient with greater than 50% spent counseling the patient and coordination of care.
[2022-12-16 16:38] VITALS: BP 117/79
== END 2022-12-16 16:09 | disposition home or self-care (01) ==
LOC: SC 16:08
PROVIDERS: ATTEND Nurse Practitioner Family
DX: G47.00 Insomnia, unspecified (principal); R06.83 Snoring; E66.9 Obesity, unspecified; Z68.32 Body mass index [BMI] 32.0-32.9, adult
CPT/HCPCS: 99212; 99213

== ENCOUNTER 2023-01-30 09:04 | Outpatient (CLI) | payer BC ==
--- NOTE | 2023-01-30 12:49 | SLEEP CARE CONSULTATION ---
Information from patient questionnaire entered by Onel Mao. I have reviewed and concur with the information entered by Onel Mao. This document represents the service I personally performed and the decisions made by me, Jeannie White MD, [facility]. History of Present Illness Service Date and Time: 01/30/2023 09 Reason for follow up: one month (F/U INSOMNIA) Prior sleep studies: No HPI additional information: Ms. Noyola was diagnosed to insomnia. She had sleep study that was normal except for a prolonged awakening in the middle of the night. Her main complaint is sleep onset insomnia for which she is taking 4 mg of temazepam at night. She said she was prescribed 30 mg but she has been trying to wear herself off it. She reports having racing thoughts at night. She goes to bed at 9 pm and gets up at 6 am on weekdays (8 am on weekends). Her gets up at 5 am. During the day, she is not sleepy. Excessive daytime sleepiness is only 2. Sleep Study - Results Prior sleep studies: No Subjective Initial [place] Sleepiness Scale score: 4 (09/10/22) Current [place] Sleepiness Scale score: 2 (01/30/23) Allergies and Home Medications Drug allergies reviewed: Yes Home medication list reviewed: Yes Allergy and home medication list: Allergies acetaminophen [From Percocet] Allergy (Verified 01/27/23 08:29) Itching oxycodone [From Percocet] Allergy (Verified 01/27/23 08:29) Itching Review of Systems Review of systems same as previous: Yes Physical Exam Vital signs obtained and entered by: ONEL Farnsworth MA Blood Pressure: 128/68 (LEFT ARM) Cuff size: regular Heart Rate: 64 O2 Saturation: 3 Height: 5 ft 9 in Weight: 216 lb 6.4 oz Body Mass Index: 31.9 BMI Classification: Obese Impression and Plan Insomnia, psychophysiological and possibly due to underlying anxiety. I reassured her that she has been getting adequate sleep all along because she is not sleepy during the day. Her [place] Sleepiness Scale score is only 2. Therefore, her goal should be to reduce time lying awake rather than getting more sleep. I advised her to limit time spent in bed to 8 hours. If she wakes up at 6 am, she should delay her bedtime to 10 pm. She also need to wake up at 6 am on the weekends. With this sleep-wake schedule, she should be able to come off temazepam in a few weeks. PLAN: 1. Maintain a regular wake up time and spend no more than 8 hours in bed at night. Avoid naps. 2. Start skipping temazepam. 3. Consider treatment for anxiety. 4. Return as needed. Follow up with Sleep Care in: as needed Visit Type: In Office Time Spent with Patient (minutes): 15 Provider Statement: I spent 100% of the Face to Face Visit with the patient with greater than 50% spent counseling the patient and coordination of care.
[2023-01-30 12:54] VITALS: BP 128/68
== END 2023-01-30 09:05 | disposition home or self-care (01) ==
LOC: SC 09:04
PROVIDERS: ATTEND Internal Medicine Pulmonary Disease
DX: F51.04 Psychophysiologic insomnia (principal); F41.9 Anxiety disorder, unspecified
CPT/HCPCS: 99212

== ENCOUNTER 2023-09-19 06:35 | Outpatient (CLI) | payer OTHER ==
--- NOTE | 2023-09-19 12:07 | Ultrasound Report ---
PROCEDURE: Abdomen Limited INDICATIONS: RUQ ABD PAIN TECHNIQUE: Real-time focused scanning was performed of the abdomen, with image documentation. COMPARISONS: None. FINDINGS: Liver: Increased liver echogenicity, commonly mild hepatic steatosis. Gallbladder: Unremarkable. Biliary ducts: Intrahepatic bile ducts are non-dilated. Extrahepatic bile duct caliber measures 4.6 mm. Normal is 6-7 mm or less in diameter, or 10 mm or less post-cholecystectomy. Pancreas: Visualized portions of the pancreas are sonographically normal. Right kidney: Normal in size and echotexture. Right kidney measures 10.2 cm long. No hydronephrosis or nephrolithiasis. No solid masses. No complex renal cystic lesions which require follow-up. Miscellaneous: No free abdominal fluid. IMPRESSION: Unremarkable abdominal ultrasound. No gallbladder pathology. Reviewed by: Bernabe Stanford MD on 09/19/2023 12:06 PM PDT Approved by: Bernabe Stanford MD on 09/19/2023 12:06 PM PDT Station ID: [id number]
== END 2023-09-19 06:36 | disposition home or self-care (01) ==
LOC: DI 06:35
PROVIDERS: ATTEND Registered Nurse
DX: R10.11 Right upper quadrant pain (principal)